=== PATIENT | female | born 1935 | race Caucasian/White ===

== ENCOUNTER 2016-06-23 22:09 | Emergency (ER) ==
--- NOTE | 2016-06-23 22:18 | ED.PDOC ---
General ED Provider: Dr. PHILIP FAULKNER Chief Complaint: Urinary Problem Stated Complaint: bLOOD IN THE URINE Time Seen by Physician: 22:16 Nursing and Triage Documentation Reviewed and Agree: Yes Complaint Exam - UTI Female Complaint/Exam Patient Complains of: Reports: Blood in urine Symptoms Are: Still present Timing: Intermittent Initial Severity: Mild Current Severity: Mild Location of Pain: Reports: None Associated Signs and Symptoms: Denies: Fever, Chills, Flank pain, Dyspareunia, Vaginal discharge Related History: Reports: Similar episode Related Surgical History: Reports: None CVA Tenderness: No Suprapubic Tenderness: No Differential Diagnoses: Cystitis Review of Systems - Review Of Systems Constitutional: Reports: No symptoms Eyes: Reports: No symptoms Ears, Nose, Mouth, Throat: Reports: No symptoms Respiratory: Reports: No symptoms Cardiac: Reports: No symptoms GI: Reports: No symptoms : Reports: Burning, Dysuria, Hematuria Musculoskeletal: Reports: No symptoms Skin: Reports: No symptoms Neurological: Reports: No symptoms Endocrine: Reports: No symptoms Hematologic/Lymphatic: Reports: No symptoms All Other Systems: Reviewed and Negative Past Medical History - Past Medical History Previously Healthy: No Endocrine: Reports: None Cardiovascular: Reports: CAD (S/P STENTS) Respiratory: Reports: None Hematological: Reports: None Gastrointestinal: Reports: None Genitourinary: Reports: None Neuro/Psych: Reports: None Musculoskeletal: Reports: None Cancer: Reports: None - Surgical History General Surgical History: Reports: None - Family History Family History: Reports: None Physical Exam - Physical Exam Appearance: Well-appearing, Thin Eyes: EOMI, Conjunctiva clear, Conjunctiva pale ENT: Ears normal, Nose normal, Oropharynx normal Respiratory: Airway patent, Breath sounds clear, Breath sounds equal, Respirations nonlabored Cardiovascular: RRR, Pulses normal, No rub, No murmur GI/: Soft, Nontender, No masses, Bowel sounds normal, No Organomegaly Musculoskeletal: Normal strength, ROM intact, No edema, No calf tenderness Skin: Warm, Dry, Normal color Neurological: Sensation intact, Motor intact, Reflexes intact, Cranial nerves intact, Alert, Oriented Psychiatric: Affect appropriate, Mood appropriate Interpretation - Radiology Interpretation Radiology Interpretation By: Radiologist Radiology Results: Positive Exam Interpreted: CT Scan Critical Care Note - Critical Care Note Total Time (mins): 0 Course - Course Hematology/Chemistry: 06/23/16 22:30 06/23/16 22:30 Orders, Labs, Meds: Lab Review 06/23/16 06/23/16 22:30 22:35 WBC 8.45 RBC 4.19 L Hgb 13.2 Hct 39.6 MCV 94.5 MCH 31.5 H MCHC 33.3 RDW Coeff of Vanessa 13.2 Plt Count 200 Immature Gran % (Auto) 0.1 Neut % (Auto) 43.4 Lymph % (Auto) 41.9 [place] % (Auto) 11.2 H Eos % (Auto) 2.8 Baso % (Auto) 0.6 Immature Gran # (Auto) 0.0 Neut # 3.7 Lymph # 3.5 H Nance # 1.0 Eos # 0.2 Baso # 0.1 Sodium 137 Potassium 4.6 Chloride 102 Carbon Dioxide 27 Anion Gap 12.6 BUN 21 H Creatinine 0.83 Estimated GFR (MDRD) 66.00 BUN/Creatinine Ratio 25.30 Glucose 105 Calcium 9.6 Total Bilirubin 0.29 AST 19 ALT 11 L Alkaline Phosphatase 69 Total Protein 7.7 Albumin 3.9 Globulin 3.8 Albumin/Globulin Ratio 1.03 Urine Color Red Urine Clarity Cloudy Urine pH 6.0 Ur Specific [place] 1.015 Urine Protein 3+ Urine Glucose (UA) Negative Urine Ketones Trace Urine Blood 3+ Urine Nitrite Negative Urine Bilirubin 3+ Urine Urobilinogen 1.0 Ur Leukocyte Esterase 3+ Urine Microscopic RBC 50-100 Urine Microscopic WBC 5-10 Ur Squamous Epith Cells Not present Orders Category Date Time Status CBC W/ AUTO DIFF Stat LAB 06/23/16 22:30 Completed COMPREHENSIVE METABOLIC PANEL Stat LAB 06/23/16 22:30 Completed URINALYSIS C & S IF INDICATED Stat LAB 06/23/16 22:35 Completed URINE CULTURE Stat LAB 06/23/16 22:56 Received Ciprofloxacin HCl [Cipro] MEDS 06/23/16 22:59 Stat 250 mg PO ONCE STA CT ABDOMEN/PELVIS WO CONTRAST Stat RADS 06/23/16 22:15 Completed Vital Signs: Temp Pulse Resp BP Pulse Ox 06/23/16 22:10 98.4 F 67 18 149/70 H 98 Departure - Departure Time of Disposition: 22:30 Disposition: HOME SELF-CARE Discharge Problem: Hematuria, Cystitis Instructions: Hematuria (ED), Urinary Tract Infection in Women (ED) Condition: Stable Pt referred to PMD for follow-up: Yes Additional Instructions: KEEP F/U WITH pmd Increase hydration probiotiotics Allergies/Adverse Reactions: Allergies No Known Drug Allergies Adverse Reaction (Verified 06/23/16 22:20) Disposition Discussed With: Patient
[2016-06-23 22:19] VITALS: BP 149/70; TEMP 98.4; BMI 24.3
[2016-06-23 22:35] LABS: BASOPHILS # (AUTO) 0.1 K/uL (0-0.2); BASOPHILS % (AUTO) 0.6 % (0.0-3.0); EOSINOPHILS # (AUTO) 0.2 K/ul (0.0-0.7); EOSINOPHILS % (AUTO) 2.8 % (0.0-7.0); HEMATOCRIT 39.6 % (37.0-47.0); HEMOGLOBIN 13.2 g/dl (12.0-16.0); IMMATURE GRANULOCYTE % (AUTO) 0.1 % (0.0-5.0); LYMPHOCYTES # (AUTO) 3.5 K/uL (0.60-3.4); LYMPHOCYTES % (AUTO) 41.9 (10.0-50.0); MEAN CORPUSCULAR HEMOGLOBIN 31.5 pg (27.0-31.0); MEAN CORPUSCULAR HGB CONC 33.3 (31.8-35.4); MEAN CORPUSCULAR VOLUME 94.5 fl (81.0-99.0); MONOCYTES % (AUTO) 11.2 (0-10); NEUTROPHILS # (AUTO) 3.7 K/ul (2.0-6.9); NEUTROPHILS % (AUTO) 43.4; PLATELET COUNT 200 10^3/uL (140-440); RED BLOOD COUNT 4.19 10^6/ul (4.20-5.40); WHITE BLOOD COUNT 8.45 K/ul (4.6-10.2)
[2016-06-23 22:43] LABS: BILIRUBIN,URINE 3+ (NEGATIVE); KETONES,URINE Trace (NEGATIVE); LEUKOCYTE ESTERASE ,URINE 3+ (NEGATIVE); NITRITE,URINE Negative (NEGATIVE); PROTEIN,URINE 3+ (NEGATIVE); URINE, BLOOD 3+ (NEGATIVE)
[2016-06-23 22:53] LABS: ADD URINE MICROSCOPIC YES
--- NOTE | 2016-06-23 22:53 | CT ---
EXAM: CT abdomen pelvis without intravenous contrast 06/23/2016. Sagittal and coronal reformatted images obtained HISTORY: Hematuria COMPARISON: 11/22/2009. FINDINGS: The liver and gallbladder show no acute abnormality. High density within the gallbladder likely due to small stones. The adrenal glands and kidneys show no acute abnormality. There is no evidence of urinary obstructi on. The urinary bladder is mildly distended. There is wall thickening of the urinary bladder with perivesicular stranding. Correlate for cystitis. The spleen and pancreas show no acute abnormality. No evidence of bowel obstruction. Normal appendix. Diverticulosis without diverticulitis. IMPRESSION: 1. Gallstones. 2. No urinary or bowel obstruction and normal appendix. 3. Mild thickening of the urinary bladder wall with perivesicular stranding. Correlate for cystiti s. 4. Diverticulosis without diverticulitis. 5. Atherosclerotic vascular disease.
[2016-06-23 22:54] LABS: ALBUMIN 3.9 g/dL (3.4-5.0); ALBUMIN/GLOBULIN RATIO 1.03; ANION GAP 12.6; BILIRUBIN,TOTAL 0.29 mg/dL (0.00-1.20); BUN/CREATININE RATIO 25.3; CALCIUM 9.6 mg/dL (8.2-10.2); CREATININE 0.83 mg/dL (0.60-1.30); POTASSIUM 4.6 mmol/L (3.5-5.10); TOTAL PROTEIN 7.7 g/dL (5.8-8.1)
[2016-06-23] MEDS ORDERED: CIPRO PO STA (22:59)
[2016-06-23] MEDS ORDERED: BACTRIM DS 800/160 MG PO STA (23:09)
== END 2016-06-23 23:24 | disposition home or self-care (01) ==
LOC: ED 22:09
DX: N30.91 Cystitis, unspecified with hematuria (principal)
CPT/HCPCS: 36415; 80053; 81001; 85025; 87086; 99283

== ENCOUNTER 2016-07-16 00:01 | Outpatient (POV) | END 2016-07-16 00:02 | LOC: OUTPT 00:01 | PROVIDERS: ATTEND Otolaryngology | DX: H90.5 Unspecified sensorineural hearing loss (principal) | CPT/HCPCS: 92557 ==

== ENCOUNTER 2016-12-30 07:02 | Day surgery (SDC) ==
[2016-12-30] MEDS ORDERED: DIPRIVAN 20 ML VIAL IVP ONE (09:00)
[2016-12-30] MEDS ORDERED: VERSED ONE (09:00)
[2016-12-30 10:41] VITALS: BP 108/66; TEMP 97.2
--- NOTE | 2016-12-31 13:50 | OP ---
INDICATIONS FOR PROCEDURE: 81 year female with a past history of abnormalis polyps screening three years ago and presents for colonoscopy exam. MEDICATIONS: SEE ANESTHESIA NOTES. PROCEDURE: COLONOSCOPY. SNARE POLYPECTOMY REPORT: The risks, benefits, alternatives and limitations were discussed in detail with the patient. Informed consent was obtained. After adequate sedation was achieved, a digital rectal exam revealed good tone, no masses. The colonoscope was introduced into the rectum and advanced under direct visual guidance to the cecum. The cecum was identified by the appendiceal orifice and IC valve. I then slowly withdrew the scope in circumferential manner and examined the mucosa quite carefully. I looked on the proximal distal sides of folds and flexures as best as possible. In the ascending colon there is a small 4-5mm sessile polyp that I removed by snare technique. In the proximal transverse there is a 7mm sessile that I removed by snare technique. In the sigmoid there is 5mm sessile that I removed by snare technique. There was dean diverticulosis. No other abnormalities noted included on retroflex view of the anal canal. The prep was good. The withdraw time was 13 minutes and 33 seconds. The patient tolerated the procedure well with stable vital signs and pulse oximetry throughout. IMPRESSION: 1. Three polyps removed 2. Dean diverticulosis RECOMMENDATIONS: 1. High fiber diet 2. Office visit as needed 3. Await pathology results to confirm benign nature 4. Given her advanced age and health I recommend future colonoscopy on an as needed basis. CC: Gary GAMING
== END 2016-12-30 10:43 | disposition home or self-care (01) ==
LOC: SURG 07:02
PROVIDERS: ATTEND Internal Medicine Gastroenterology
DX: Z09 Encounter for follow-up examination after completed treatment for conditions other than malignant neoplasm (principal); Z86.010 Personal history of colon polyps; D12.2 Benign neoplasm of ascending colon; D12.3 Benign neoplasm of transverse colon; D12.5 Benign neoplasm of sigmoid colon; K57.30 Diverticulosis of large intestine without perforation or abscess without bleeding

== ENCOUNTER 2018-10-28 13:40 | Outpatient (CLI) | payer OTHER ==
--- NOTE | 2018-10-29 10:29 | MAMMO ---
EXAM: Digital screening mammogram with Tomosynthesis HISTORY: Screening COMPARISON: 07/21/2013 FINDINGS: Digital MLO and CC views of the right and left breast were performed. Tomosynthesis was performed. Computer aided detection utilized. There are scattered fibroglandular densities. There i s no evidence for mass, asymmetry, distortion, or suspicious calcifications in either breast. IMPRESSION: 1. No evidence of malignancy in the right or left breast. 2. Annual screening mammogram is recommended in one year. BIRADS category 1, negative examination
== END 2018-10-28 13:41 | disposition home or self-care (01) ==
LOC: RAD 13:40
PROVIDERS: ATTEND Family Medicine
DX: Z12.31 Encounter for screening mammogram for malignant neoplasm of breast (principal)

== ENCOUNTER 2021-05-20 16:34 | Inpatient (IN) ==
[2021-05-20 16:45] VITALS: BMI 19.8
[2021-05-20] MEDS ORDERED: LACTATED RINGERS 1,000 ML IV STA (17:33)
--- NOTE | 2021-05-20 17:38 | ED.PDOC ---
General ED Provider: Dr. PATRICK CALDWELL Chief Complaint: Nausea/Vomiting Stated Complaint: Nausea, cough, Fever sore throat and Diarrhea for two days. Time Seen by Provider: 05/20/21 17:33 Mode of Arrival: Wheelchair Information Source: Patient Primary Care Provider: PRISCA ZABALA Nursing and Triage Documentation Reviewed and Agree: Yes Does patient meet sepsis criteria?: No If yes, has appropriate treatment been initiated?: No System Inflammatory Response Syndrome: Not Applicable Sepsis Protocol: For patient's 13 years and over: Temp is 96.8 and below OR 101 and greater Pulse >90 BPM Resp >20/minute Acutely Altered Mental Status Are patient's symptoms suggestive of a new infection, such as: -Pneumonia -Skin, Soft Tissue -Endocarditis -UTI -Bone, Joint Infection -Implantable Device -Acute Abdominal Infection -Wound Infection -Meningitis -Blood Stream Catheter Infection -Unknown Review of Systems Review Of Systems Constitutional: Reports Weakness and Loss of appetite Eyes: Reports No symptoms Ears, Nose, Mouth, Throat: Reports Throat pain Respiratory: Reports Cough Cardiac: Reports No symptoms GI: Reports Diarrhea, Nausea and Vomiting : Reports No symptoms Musculoskeletal: Reports No symptoms Skin: Reports No symptoms Neurological: Reports Anxiety Endocrine: Reports No symptoms Hematologic/Lymphatic: Reports No symptoms All Other Systems: Reviewed and Negative [facility] Medical History (Updated 05/20/21 @ 21:46 by PATRICK CALDWELL MD) Arthritis Cardiac disease Seasonal allergies Family History Mother Diabetes SISTER Diabetes Psychiatric problem BROTHER Diabetes Surgical History (Updated 05/20/21 @ 21:46 by PATRICK CALDWELL MD) S/P Maze operation for atrial fibrillation Status post hysterectomy Female Reproductive History Menstrual Hx Hysterectomy: Yes Hx Tubal Ligation: No Physical Exam Physical Exam Appearance: Reports Ill-appearing and Thin Ill-appearing: Severe Pain Distress: None Eyes: Reports Conjunctiva clear ENT: Reports Nose normal and Oropharynx normal Neck: Supple Respiratory: Reports Breath sounds diminished and Rhonchi Cardiovascular: Reports Tachycardia GI/: Reports Soft, Nontender and No masses Musculoskeletal: Reports Normal strength, ROM intact and No edema Skin: Reports Warm, Dry and Normal color Neurological: Reports Motor intact, Alert and Oriented Psychiatric: Reports Anxious Interpretation Radiology Interpretation Radiology Interpretation By: Radiologist Radiology Results: Positive (No evidence of pulmonary embolus. Cardiomegaly without pericardial effusion.. Metastatic pulmonary nodules. Right lobe pneumonia. Minimal left basilar atelectasis.) Exam Interpreted: CT Scan EKG Interpretation Time of EKG #1: 18:36 Rate: Tachy Rhythm: Other (Atrial Fibrillation) Ectopy: None [place]: NL ST Segment: Other (non specific consider subendocaridic injury ) Interpretation: Atrial Fibrillation with RVR Time of EKG #2: 18:38 Rate: Normal Rhythm: Other (Atrial Fibrillation) Ectopy: PVCs [place]: NL ST Segment: Normal EKG Interpretation: Afib with PACS Critical Care Note Critical Care Note Total Critical Care Time (mins): 30 Course Course Hematology/Chemistry: 05/20/21 17:42 05/20/21 17:42 Orders, Labs, Meds: Lab Review 05/20/21 05/20/21 05/20/21 17:33 17:42 17:42 WBC 7.54 RBC 3.67 L Hgb 11.7 L Hct 36.0 L MCV 98.1 MCH 31.9 H MCHC 32.5 RDW Coeff of Vanessa 14.9 H Plt Count 118 L Immature Gran % (Auto) 0.3 Neut % (Auto) 79.5 H Lymph % (Auto) 11.3 [place] % (Auto) 8.8 Eos % (Auto) 0.0 Baso % (Auto) 0.1 Neut # (Auto) 6.0 Lymph # (Auto) 0.9 [place] # (Auto) 0.7 Eos # (Auto) 0.0 Baso # (Auto) 0.0 Immature Gran # (Auto) 0.0 Puncture Site Base Excess O2 Saturation ABG pH ABG pCO2 ABG pO2 ABG HCO3 ABG Total CO2 Americo Test Hemoglobin Oxyhemoglobin Carboxyhemoglobin Total Hemoglobin FiO2 % Sodium 134.3 L Potassium 3.55 Chloride 100.0 Carbon Dioxide 28.5 Anion Gap 9.35 BUN 27.0 H Creatinine 1.14 Estimated GFR (MDRD) 45.00 BUN/Creatinine Ratio 23.68 Glucose 145.7 H Lactic Acid Calcium 9.17 Total Bilirubin 0.94 AST 53.5 H ALT 19.7 Alkaline Phosphatase 103.4 Total Protein 7.30 Albumin 3.89 Globulin 3.41 Albumin/Globulin Ratio 1.14 Amylase 89.0 Lipase 75.3 Procalcitonin Urine Color Urine Clarity Urine pH Ur Specific [place] Urine Protein Urine Glucose (UA) Urine Ketones Urine Blood Urine Nitrite Urine Bilirubin Urine Urobilinogen Ur Leukocyte Esterase Urine Microscopic RBC Urine Microscopic WBC Ur Squamous Epith Cells Ur Renal Epithelial Cell Amorphous Sediment Fine Granular Casts Influ A Molecular Assay Influ B Molecular Assay RSV Antigen SARS CoV-2 RNA Rapid JULIEN Positive H 05/20/21 05/20/21 05/20/21 17:42 17:49 17:49 WBC RBC Hgb Hct MCV MCH MCHC RDW Coeff of Vanessa Plt Count Immature Gran % (Auto) Neut % (Auto) Lymph % (Auto) [place] % (Auto) Eos % (Auto) Baso % (Auto) Neut # (Auto) Lymph # (Auto) [place] # (Auto) Eos # (Auto) Baso # (Auto) Immature Gran # (Auto) Puncture Site Base Excess O2 Saturation ABG pH ABG pCO2 ABG pO2 ABG HCO3 ABG Total CO2 Americo Test Hemoglobin Oxyhemoglobin Carboxyhemoglobin Total Hemoglobin FiO2 % Sodium Potassium Chloride Carbon Dioxide Anion Gap BUN Creatinine Estimated GFR (MDRD) BUN/Creatinine Ratio Glucose Lactic Acid 2.20 H Calcium Total Bilirubin AST ALT Alkaline Phosphatase Total Protein Albumin Globulin Albumin/Globulin Ratio Amylase Lipase Procalcitonin 0.43 H Urine Color Urine Clarity Urine pH Ur Specific [place] Urine Protein Urine Glucose (UA) Urine Ketones Urine Blood Urine Nitrite Urine Bilirubin Urine Urobilinogen Ur Leukocyte Esterase Urine Microscopic RBC Urine Microscopic WBC Ur Squamous Epith Cells Ur Renal Epithelial Cell Amorphous Sediment Fine Granular Casts Influ A Molecular Assay Negative by naat Influ B Molecular Assay Negative by naat RSV Antigen Negative by naat SARS CoV-2 RNA Rapid JULIEN 05/20/21 05/20/21 18:40 20:30 WBC RBC Hgb Hct MCV MCH MCHC RDW Coeff of Vanessa Plt Count Immature Gran % (Auto) Neut % (Auto) Lymph % (Auto) [place] % (Auto) Eos % (Auto) Baso % (Auto) Neut # (Auto) Lymph # (Auto) [place] # (Auto) Eos # (Auto) Baso # (Auto) Immature Gran # (Auto) Puncture Site Lbrach Base Excess 4.0 H O2 Saturation 83.9 L ABG pH 7.47 H ABG pCO2 38.0 ABG pO2 45.0 L* ABG HCO3 27.7 ABG Total CO2 28.9 H Americo Test + Hemoglobin 1.0 Oxyhemoglobin 81.5 L Carboxyhemoglobin 0.5 Total Hemoglobin 11.5 L FiO2 % 21.0 Sodium Potassium Chloride Carbon Dioxide Anion Gap BUN Creatinine Estimated GFR (MDRD) BUN/Creatinine Ratio Glucose Lactic Acid Calcium Total Bilirubin AST ALT Alkaline Phosphatase Total Protein Albumin Globulin Albumin/Globulin Ratio Amylase Lipase Procalcitonin Urine Color Yellow Urine Clarity Clear Urine pH 7.0 Ur Specific [place] 1.020 Urine Protein 2+ H Urine Glucose (UA) Negative Urine Ketones Negative Urine Blood 1+ H Urine Nitrite Negative Urine Bilirubin Negative Urine Urobilinogen 0.2 Ur Leukocyte Esterase Negative Urine Microscopic RBC 2-5 Urine Microscopic WBC 5-10 Ur Squamous Epith Cells 0-2 Ur Renal Epithelial Cell 2-5 Amorphous Sediment Trace Fine Granular Casts 5-10 Influ A Molecular Assay Influ B Molecular Assay RSV Antigen SARS CoV-2 RNA Rapid JULIEN Orders Category Date Time Status ABG DRAW REQUEST DAILY@0600 CARDIO 05/21/21 06:00 Ordered ABG DRAW REQUEST DAILY@0600 CARDIO 05/22/21 06:00 Ordered ABG DRAW REQUEST Stat CARDIO 05/20/21 18:49 Completed EKG-(ED ONLY) Stat CARDIO 05/20/21 18:30 Completed EKG-(ED ONLY) Stat CARDIO 05/20/21 18:49 Completed INCENTIVE SPIROMETRY Routine CARDIO 05/20/21 20:34 Ordered METERED DOSE INHALATION Routine CARDIO 05/20/21 20:38 Ordered CONTINUOUS PULSE OX (NURSING) PULSEOX CARE 05/20/21 20:34 Active NPO REMINDER: IMAGING ONCE CARE 05/20/21 19:02 Active TELEMETRY MONITORING TELE CARE 05/20/21 20:34 Active ED IV/MEDIPORT/POWERPORT .ONCE EMERGENCY 05/20/21 17:33 Active ABG COOX DAILY@0600 LAB 05/21/21 06:00 Ordered ABG COOX DAILY@0600 LAB 05/22/21 06:00 Ordered ABG COOX Stat LAB 05/20/21 18:40 Completed AMYLASE Stat LAB 05/20/21 17:42 Completed BLOOD CULTURE (ED ONLY) Stat LAB 05/20/21 17:49 Received C-REACTIVE PROTEIN DAILY@0600 LAB 05/21/21 06:00 Ordered C-REACTIVE PROTEIN DAILY@0600 LAB 05/22/21 06:00 Ordered CBC W/ AUTO DIFF Stat LAB 05/20/21 17:42 Completed COMPREHENSIVE METABOLIC PANEL Stat LAB 05/20/21 17:42 Completed D-DIMER DAILY@0600 LAB 05/20/21 06:00 Ordered D-DIMER DAILY@0600 LAB 05/21/21 06:00 Ordered D-DIMER DAILY@0600 LAB 05/22/21 06:00 Ordered FERRITIN DAILY@0600 LAB 05/21/21 06:00 Ordered FERRITIN DAILY@0600 LAB 05/22/21 06:00 Ordered FLU A & B MOLECULAR [FLU A/B MOLECULAR] Stat LAB 05/20/21 17:42 Completed LACTIC ACID Stat LAB 05/20/21 17:49 Completed LIPASE Stat LAB 05/20/21 17:42 Completed Lactic Acid Dehydrogenase DAILY@0600 LAB 05/21/21 06:00 Ordered PROCALCITONIN Stat LAB 05/20/21 17:49 Completed PT WITH INR DAILY@0600 LAB 05/21/21 06:00 Ordered PT WITH INR DAILY@0600 LAB 05/22/21 06:00 Ordered RAPID STREP SCREEN [MOLECULAR GROUP A STREP] Stat LAB 05/20/21 17:33 Completed RSV Stat LAB 05/20/21 17:42 Completed TROPONIN I DAILY@0600 LAB 05/21/21 06:00 Ordered TROPONIN I DAILY@0600 LAB 05/22/21 06:00 Ordered URINALYSIS C & S IF INDICATED Stat LAB 05/20/21 20:30 Completed 0.9 % Sodium Chloride [Saline Flush] MEDS 05/20/21 17:33 Active 1 syr IVF PRN PRN Acetaminophen [Tylenol] MEDS 05/20/21 19:20 Discontinued 650 mg PO ONCE ONE Albuterol Inhaler(with Spacer) [Ventolin Hfa (Per Puff- MEDS 05/20/21 21:00 Active with Spacer)] 4 puff IH RTTID Budesonide/Formoterol Fumarate [Symbicort 160-4.5 Mcg MEDS 05/20/21 21:00 Active Inhaler] 4 puff IH RTBID Ceftriaxone 1 gm Vial [Rocephin 1 gm Vial] MEDS 05/20/21 19:26 Discontinued 1 gm .ROUTE .STK-MED ONE Ceftriaxone 1 gm Vial [Rocephin 1 gm Vial] 1 gm MEDS 05/20/21 19:19 Discontinued 0.9 % Sodium Chloride [Sodium Chloride 100Ml] 100 ml IV ONCE Cholecalciferol (Vitamin D3) [Vitamin D] MEDS 05/21/21 09:00 Active 5,000 unit PO DAILY Dexamethasone Sod Phosphate [Decadron] MEDS 05/21/21 09:00 Active 6 mg IM DAILY Dexamethasone Sod Phosphate [Decadron] MEDS 05/20/21 19:19 Discontinued 6 mg IVP ONCE ONE Diltiazem HCl [Cardizem Inj] MEDS 05/20/21 18:29 Discontinued 15 mg IVP ONCE STA Diltiazem HCl [Cardizem] 125 mg MEDS 05/20/21 18:30 Discontinued 0.9 % Sodium Chloride [Sodium Chloride 100Ml] 100 ml IV TITRATION Famotidine [Pepcid] MEDS 05/21/21 06:30 Pending 40 mg PO BIDAC Ondansetron HCl/Pf [Zofran 4 mg/2 ml] MEDS 05/20/21 17:46 Discontinued 4 mg IVP ONCE STA Remdesivir Solution [Veklury] 100 mg MEDS 05/22/21 09:00 Pending 0.9 % Sodium Chloride [Sodium Chloride] 250 ml IV DAILY Remdesivir Solution [Veklury] 200 mg MEDS 05/21/21 09:00 Active 0.9 % Sodium Chloride [Sodium Chloride] 250 ml IV ONCE Ringers Lactated Solution [Lactated Ringers] 1,000 ml MEDS 05/20/21 17:33 Discontinued IV BOLUS Zinc Sulfate [Zinc-220] MEDS 05/21/21 09:00 Active [address] ABDOMEN/PELVIS W CONTRAST Stat RADS 05/20/21 19:[address] CHEST PE PROTOCOL Stat RADS 05/20/21 19:02 Completed Medications Generic Name Dose Route Start Last Admin Trade Name Freq PRN Reason Stop Dose Admin Albuterol Sulfate 4 puff 05/20/21 21:00 Albuterol Sulfate (Ventolin Hfa) 18 Gm 1 Puff With Spacer RTTID [facility] Budesonide/Formoterol Fumarate 4 puff 05/20/21 21:00 Budesonide/Formoterol Fumarate 160/4.5 Mcg Inhaler RTBID [facility] Cholecalciferol 5,000 unit 05/21/21 09:00 Cholecalciferol (Vitamin D3) 1,000 Unit (25 Mcg) Tablet PO DAILY [facility] Dexamethasone Sodium Phosphate 6 mg 05/21/21 09:00 Dexamethasone Sod Phos 10 Mg/Ml Inj IM DAILY [facility] Enoxaparin Sodium 30 mg 05/21/21 09:00 Enoxaparin Sodium 30 Mg/0.3 Ml Syr SUBCUT DAILY [facility] Famotidine 40 mg 05/21/21 06:30 Famotidine 20 Mg Tablet PO BIDAC [facility] REMDESIVIR SOLUTION 100 mg/ 270 mls @ 270 mls/hr 05/22/21 09:00 Sodium Chloride IV DAILY HATTIE REMDESIVIR SOLUTION 200 mg/ 290 mls @ 145 mls/hr 05/21/21 09:00 Sodium Chloride IV 05/21/21 10:59 ONCE ONE Sodium Chloride 1,000 mls @ 30 mls/hr 05/20/21 21:30 Sodium Chloride IV .[id number] [facility] Diltiazem HCl 125 mg/ Sodium 125 mls @ 15 mls/hr 05/20/21 21:34 Chloride IV TITRATION HATTIE Protocol 15 MG/HR Ondansetron HCl 4 mg 05/20/21 21:35 Ondansetron Hcl/Pf 4 Mg/2 Ml Sdv IVP Q6H PRN Nausea / Vomiting Sodium Chloride 1 syr 05/20/21 17:33 05/20/21 18:03 0.9% Sodium Chloride 10 Ml Disp.Syrin IVF 1 syr PRN PRN Administration To flush IV Zinc Sulfate 220 mg 05/21/21 09:00 Zinc Sulfate 220 Mg Capsule PO DAILY [facility] Discontinued Medications Generic Name Dose Route Start Last Admin Trade Name Freq PRN Reason Stop Dose Admin Acetaminophen 650 mg 05/20/21 19:20 05/20/21 19:30 Acetaminophen 325 Mg Tablet PO 05/20/21 19:21 650 mg ONCE ONE Administration Dexamethasone Sodium Phosphate 6 mg 05/20/21 19:19 05/20/21 19:29 Dexamethasone Sod Phos 10 Mg/Ml Inj IVP 05/20/21 19:20 6 mg ONCE ONE Administration Diltiazem HCl 15 mg 05/20/21 18:29 05/20/21 18:37 Diltiazem Hcl Inj 25 Mg/5 Ml Vial IVP 05/20/21 18:30 15 mg ONCE STA Administration Lactated Ringer's 1,000 mls @ 1,000 mls/hr 05/20/21 17:33 05/20/21 17:32 Lactated Ringers IV 05/20/21 18:32 1,000 mls/hr BOLUS STA Administration Diltiazem HCl 125 mg/ Sodium 125 mls @ 5 mls/hr 05/20/21 18:30 05/20/21 20:32 Chloride IV 10 mg/hr TITRATION HATTIE 10 mls/hr Titration Protocol 5 MG/HR Ceftriaxone Sodium 1 gm/ 100 mls @ 150 mls/hr 05/20/21 19:19 05/20/21 19:30 Sodium Chloride IV 05/20/21 19:58 150 mls/hr ONCE STA Administration Ondansetron HCl 4 mg 05/20/21 17:46 05/20/21 18:06 Ondansetron Hcl/Pf 4 Mg/2 Ml Sdv IVP 05/20/21 17:47 4 mg ONCE STA Administration Vital Signs: Temp Pulse Resp BP Pulse Ox 05/20/21 20:11 105 H 20 118/66 96 05/20/21 16:39 101.4 F H 120 H 19 121/89 93 L Discharge Plan Discharge Patient Disposition: ADMITTED INPATIENT Discharge Problem: COVID-19, Nausea, Vomiting, Atrial fibrillation with RVR ED Provider: PATRICK CALDWELL Condition: Fair Physician Progress Note: []
[2021-05-20] MEDS ORDERED: ZOFRAN 4 MG/2 ML IVP STA (17:46)
[2021-05-20 17:50] LABS: BASOPHILS % (AUTO) 0.1 % (0.0-3.0); HEMOGLOBIN 11.7 g/dl (12.0-16.0); IMMATURE GRANULOCYTE % (AUTO) 0.3 % (0.0-5.0); LYMPHOCYTES # (AUTO) 0.9 K/uL (0.60-3.4); LYMPHOCYTES % (AUTO) 11.3 (10.0-50.0); MEAN CORPUSCULAR HEMOGLOBIN 31.9 pg (27.0-31.0); MEAN CORPUSCULAR HGB CONC 32.5 (31.8-35.4); MEAN CORPUSCULAR VOLUME 98.1 fl (81.0-99.0); MONOCYTES # (AUTO) 0.7 K/uL (0.4-2.0); MONOCYTES % (AUTO) 8.8 (0-10); NEUTROPHILS % (AUTO) 79.5 % (42.2-75.2); PLATELET COUNT 118 10^3/uL (140-440); RDW COEFFICIENT OF VARIATION 14.9 % (11.6-14.8); RED BLOOD COUNT 3.67 10^6/ul (4.20-5.40); WHITE BLOOD COUNT 7.54 K/ul (4.6-10.2)
[2021-05-20 17:58] LABS: ALANINE AMINOTRANSFERASE 19.7 U/L (0-35); ALBUMIN 3.89 g/dL (3.5-5.0); ALKALINE PHOSPHATASE 103.4 U/L (53-141); ASPARTATE AMINO TRANSFERASE 53.5 U/L (14-36); BILIRUBIN,TOTAL 0.94 mg/dL (0.2-1.3); CALCIUM 9.17 mg/dL (8.4-10.2); CARBON DIOXIDE 28.5 mmol/L (22-30.0); CREATININE 1.14 mg/dL (0.60-1.30); GLUCOSE 145.7 mg/dL (74-106); LIPASE 75.3 U/L (23-300); POTASSIUM 3.55 mmol/L (3.5-5.1); SODIUM 134.3 mmol/L (134.5-145); TOTAL PROTEIN 7.3 g/dL (6.3-8.2)
[2021-05-20 18:03] LABS: MOLECULAR FLU A NEGATIVE BY NAAT (NEGATIVE); MOLECULAR FLU B NEGATIVE BY NAAT (NEGATIVE); RSV MOLECULAR NEGATIVE BY NAAT (NEGATIVE)
[2021-05-20] MEDS ORDERED: CARDIZEM INJ IVP STA (18:29)
[2021-05-20] MEDS ORDERED: CARDIZEM 125 MG in SODIUM CHLORIDE 100ML 100 ML IV SCH (18:30)
[2021-05-20 18:56] LABS: ABG PH 7.47 (7.35-7.45)
[2021-05-20 18:57] LABS: COHb 0.5 (0.5-1.5); HCO3 27.7 (21-28); TCO2 28.9 (19-24); sO2 83.9 % (94-98)
[2021-05-20 18:58] LABS: ABG O2 HGB 81.5 % (95-100); tHb 11.5 g/dl (11.7-17.4)
[2021-05-20] MEDS ORDERED: ROCEPHIN 1 GM VIAL 1 GM in SODIUM CHLORIDE 100ML 100 ML IV STA (19:19)
[2021-05-20] MEDS ORDERED: DECADRON IVP ONE (19:19)
[2021-05-20] MEDS ORDERED: TYLENOL PO ONE (19:20)
[2021-05-20] MEDS ORDERED: ROCEPHIN 1 GM VIAL ONE (19:26)
[2021-05-20 20:47] LABS: BILIRUBIN,URINE Negative (NEGATIVE); CLARITY,URINE Clear (CLEAR); COLOR,URINE Yellow (YELLOW); GLUCOSE, URINE (UA) Negative (NEGATIVE); KETONES,URINE Negative (NEGATIVE); LEUKOCYTE ESTERASE ,URINE Negative (NEGATIVE); NITRITE,URINE Negative (NEGATIVE); PROTEIN,URINE 2+ (NEGATIVE); URINE, BLOOD 1+ (NEGATIVE); UROBILINOGEN,URINE 0.2 (0.2)
[2021-05-20 20:56] LABS: AMORPHOUS SEDIMENT,UR TRACE (NOT PRESENT); SQUAMOUS EPITHELIAL CELL,UR 0-2 (0-5)
--- NOTE | 2021-05-20 21:08 | CT ---
EXAM: CT of the abdomen pelvis with contrast History: Abdominal pain with nausea and vomiting. Comparison: CT abdomen pelvis 06/23/2016 Technique: Multiplanar CT images through the abdomen pelvis were obtained following administration o f IV contrast Findings: Heart is enlarged. Right basilar consolidation. No acute osseous abnormalities. There i s motion artifact. Cholelithiasis. No liver or splenic lesions. The pancreas and adrenal glands ar e unremarkable. Atherosclerotic vascular calcifications. No renal masses. Mild bilateral hydroneph rosis is probably related to the distended bladder. There is circumferential bladder wall thickening . Uterus is not seen and likely has been surgically removed. The appendix is not dilated or inflame d. No free air and no ascites. Colonic diverticulosis. A few prominent loops of small bowel but no evidence for bowel obstruction. No free air and no ascites. No lymphadenopathy. Impression: 1. Right lower lobe pneumonia. 2. Cholelithiasis. 3. Mild bilateral hydronephrosis is probably related to the distended bladder. 4. Cystitis. 5. Colonic diverticulosis. 6. Atherosclerotic vascular disease All CT scans are performed using dose optimization techniques as appropriate to the performed exam an d include at least one of the following: Automated exposure control, adjustment of the mA and/or kV according t o size, and the use of iterative reconstruction technique.
--- NOTE | 2021-05-20 21:14 | CT ---
EXAM: CTA chest HISTORY: Shortness of breath,covid COMPARISON: CTA chest 09/19/2020 FINDINGS: Postcontrast helical imaging was obtained through the thorax utilizing 3-mm collimation. Sagittal coronal reconstructions were imaged and reviewed. Source images were utilized create rotati ng 3-D MIP images.. The thoracic inlet is unremarkable. There is 1.5 cm pretracheal lymph node. Th e ascending aorta is ectatic measuring 3.4 cm. The heart is enlarged without pericardial effusion. Postoperative changes are seen relation to the aortic valve. There is no pulmonary embolus. There a re marked emphysematous changes. There are upper lobe metastatic pulmonary nodules, largest of which measures 2.2 x 1.1 cm anteriorly within the left upper lobe. The largest right upper lobe pulmonary nodule 1.5 cm. There is a single lead millimeter left lower needed.. Consolidation compatible pneu monia is noted at the right lung base. There is minimal atelectasis at the left lung base. [place] es are seen within the gallbladder. There is fullness of the right pelvocaliceal system and visualiz ed proximal ureter.. Bone windows reveals no evidence of lytic or blastic lesions. IMPRESSION: No evidence of pulmonary embolus. Cardiomegaly without pericardial effusion.. Metastatic pulmonary nodules. Right lobe pneumonia. Minimal left basilar atelectasis. All CT scans are performed using dose optimization techniques as appropriate to the performed exam an d include at least one of the following: Automated exposure control, adjustment of the mA and/or kV according t o size, and the use of iterative reconstruction technique.
[2021-05-20] MEDS ORDERED: ZOFRAN 4 MG/2 ML IVP PRN (21:35)
[2021-05-20] MEDS: CARDIZEM 125 MG in SODIUM CHLORIDE 100ML 100 ML IV SCH (21:50)
[2021-05-20] MEDS: SODIUM CHLORIDE 1,000 ML IV SCH (22:15)
[2021-05-20] MEDS: SYMBICORT 160-4.5 MCG INHALER IH SCH (22:30)
[2021-05-20] MEDS ORDERED: ZITHROMAX 500 MG in SODIUM CHLORIDE 250 ML IV SCH ×2 (22:30→23:00)
[2021-05-20] MEDS: VENTOLIN HFA (PER PUFF-WITH SPACER) IH SCH (23:30)
[2021-05-20] MEDS: CARDIZEM CD PO SCH (23:47)
[2021-05-21] MEDS: VENTOLIN HFA (PER PUFF-WITH SPACER) IH SCH ×3 (05:00→19:45)
[2021-05-21 05:28] LABS: ABG PH 7.42 (7.35-7.45)
[2021-05-21 05:29] LABS: BEecf 3.4 (-2.0-3.0); COHb 1.2 (0.5-1.5); HCO3 27.9 (21-28); MetHb 0 (0-1.5); TCO2 29.2 (19-24); sO2 95.5 % (94-98); tHb 11.8 g/dl (11.7-17.4)
[2021-05-21 05:30] LABS: ABG O2 HGB 93.9 % (95-100)
[2021-05-21] MEDS: LASIX TAB PO SCH (06:09)
[2021-05-21 06:13] LABS: TROPONIN I 0.126 ng/ml (0.0000-0.120)
[2021-05-21 06:17] LABS: PROTHROMBIN TIME 11.4 SEC (9.3-11.0)
[2021-05-21] MEDS ORDERED: PEPCID PO SCH (06:30)
[2021-05-21] MEDS: SYMBICORT 160-4.5 MCG INHALER IH SCH ×2 (06:41→17:03)
[2021-05-21] MEDS: CARDIZEM 125 MG in SODIUM CHLORIDE 100ML 100 ML IV SCH (06:50)
[2021-05-21] MEDS: PEPCID PO SCH (07:17)
[2021-05-21] MEDS: LOVENOX SUBCUT SCH ×2 (07:18→10:11)
[2021-05-21] MEDS ORDERED: LOVENOX SUBCUT SCH (09:00)
[2021-05-21] MEDS ORDERED: LOPRESSOR PO SCH (09:00)
[2021-05-21] MEDS: ARAVA PO SCH (10:09)
[2021-05-21] MEDS: VITAMIN D PO SCH (10:10)
[2021-05-21] MEDS: ASPIRIN EC PO SCH (10:10)
[2021-05-21] MEDS: ZINC-220 PO SCH (10:10)
[2021-05-21] MEDS: ROCEPHIN 1 GM/50 ML D5W 1 GM/50 ML BAG IV SCH (10:11)
[2021-05-21] MEDS: DECADRON IM SCH (10:11)
[2021-05-21 10:53] LABS: BLOOD UREA NITROGEN 26.3 mg/dL (7-17); CALCIUM 9.02 mg/dL (8.4-10.2); CARBON DIOXIDE 26.5 mmol/L (22-30.0); CHLORIDE 104.2 mmol/L (98-107); CREATININE 0.91 mg/dL (0.60-1.30); GLUCOSE 164.9 mg/dL (74-106); MAGNESIUM 1.92 mg/dL (1.6-2.3); POTASSIUM 3.6 mmol/L (3.5-5.1); SODIUM 136.7 mmol/L (134.5-145)
[2021-05-21] MEDS: VIT C E ZN COPPR LUTEIN ZEAXAN PO SCH (11:18)
[2021-05-21] MEDS: LANOXIN PO SCH ×2 (11:18→12:16)
[2021-05-21] MEDS: CARDIZEM CD PO SCH (11:18)
[2021-05-21] MEDS: [UNRECOGNIZED DRUG - OTHER] PO SCH (11:18)
[2021-05-21] MEDS ORDERED: VEKLURY 200 MG in SODIUM CHLORIDE 250 ML IV ONE (12:00)
[2021-05-21] MEDS: LIPITOR PO SCH (16:54)
--- NOTE | 2021-05-21 20:04 | PCM.PROG ---
Date Seen by Provider: 05/21/21 Time Seen by Provider: 09:00 Subjective: Pt feeling better, Afib controlled. Denies chest pain or dyspnea Objective: Vitals: T=97.6 F, P=77, R=19, BP=98/63, SPO2=98 HEENT: Neck: Supple;neg JVD Lungs:CTA CVS: HR irreg irreg Abdomen: Soft non tender Extremities: neg edema Neurological: wnl Skin: [] Lab/Tests/Diagnostic Imaging: [] (1) Atrial fibrillation with RVR: Status: Acute Code(s): I48.91 - Unspecified atrial fibrillation SNOMED Code(s): 449246103855073 (2) COVID-19: Status: Acute Code(s): U07.1 - COVID-19 SNOMED Code(s): 390413090 Plan: Continue current tx Ck lanoxin level/orders
[2021-05-21] MEDS: ZITHROMAX 500 MG in SODIUM CHLORIDE 250 ML IV SCH (21:18)
[2021-05-22] MEDS ORDERED: TYLENOL PO PRN (00:37)
[2021-05-22 04:09] LABS: C-REACTIVE PROTEIN 127 mg/L (0-10)
[2021-05-22] MEDS: VENTOLIN HFA (PER PUFF-WITH SPACER) IH SCH ×3 (04:40→20:00)
[2021-05-22 04:42] LABS: ABG PH 7.45 (7.35-7.45); BEecf 5.2 (-2.0-3.0); HCO3 29.2 (21-28); MetHb 0.2 (0-1.5)
[2021-05-22 04:43] LABS: ABG O2 HGB 94.8 % (95-100); TCO2 30.5 (19-24); sO2 97.3 % (94-98); tHb 13.8 g/dl (11.7-17.4)
[2021-05-22 05:40] LABS: BASOPHILS % (AUTO) 0.1 % (0.0-3.0); HEMATOCRIT 29.4 % (37.0-47.0); HEMOGLOBIN 9.7 g/dl (12.0-16.0); IMMATURE GRANULOCYTE # (AUTO) 0.1 (0.0-1.0); IMMATURE GRANULOCYTE % (AUTO) 0.7 % (0.0-5.0); LYMPHOCYTES % (AUTO) 8.6 (10.0-50.0); MEAN CORPUSCULAR HEMOGLOBIN 31.9 pg (27.0-31.0); MEAN CORPUSCULAR VOLUME 96.7 fl (81.0-99.0); MONOCYTES # (AUTO) 0.8 K/uL (0.4-2.0); MONOCYTES % (AUTO) 6.5 (0-10); NEUTROPHILS # (AUTO) 9.7 K/ul (2.0-6.9); NEUTROPHILS % (AUTO) 84.1 % (42.2-75.2); PLATELET COUNT 86 10^3/uL (140-440); RDW COEFFICIENT OF VARIATION 14.9 % (11.6-14.8); RED BLOOD COUNT 3.04 10^6/ul (4.20-5.40); WHITE BLOOD COUNT 11.52 K/ul (4.6-10.2)
[2021-05-22 05:55] LABS: ALANINE AMINOTRANSFERASE 18.5 U/L (0-35); ALBUMIN 3.1 g/dL (3.5-5.0); ALKALINE PHOSPHATASE 81.6 U/L (53-141); ASPARTATE AMINO TRANSFERASE 37.5 U/L (14-36); BILIRUBIN,TOTAL 0.66 mg/dL (0.2-1.3); BLOOD UREA NITROGEN 30.5 mg/dL (7-17); CALCIUM 8.45 mg/dL (8.4-10.2); CHLORIDE 103.7 mmol/L (98-107); CREATININE 0.73 mg/dL (0.60-1.30); GLUCOSE 136.9 mg/dL (74-106); POTASSIUM 3.37 mmol/L (3.5-5.1); SODIUM 134.9 mmol/L (134.5-145); TOTAL PROTEIN 6.1 g/dL (6.3-8.2)
[2021-05-22] MEDS: PEPCID PO SCH (05:56)
[2021-05-22] MEDS: SYMBICORT 160-4.5 MCG INHALER IH SCH ×2 (05:56→20:25)
[2021-05-22] MEDS: LASIX TAB PO SCH (05:56)
[2021-05-22 06:05] LABS: TROPONIN I 0.047 ng/ml (0.0000-0.120)
[2021-05-22] MEDS: SODIUM CHLORIDE 1,000 ML IV SCH (06:06)
--- NOTE | 2021-05-22 08:46 | PCM.PROG ---
Date Seen by Provider: 05/22/21 Time Seen by Provider: 07:50 Subjective: Pt presented with COVID 19 and afib w/ rvr. Today she is feeling much better. Is still on O2 but on 3L is oxygenating at 97%. Her afib has resolved and HR is 88. She is on Dig and cardizem which will be continued. Objective: Vitals: T=97.6 F, P=80, R=14, ZI=204/58, SPO2=97 HEENT: PERRL Neck: supple Lungs: no respiratory distress, lungs are clear CVS: RRR Abdomen: soft Neurological: A+Ox3, no focal deficits Lab/Tests/Diagnostic Imaging: WBC 11.5, Hb 9.7, K 3.37. AB.45 CO2 42 O2 90. Dig 0.78 (1) Atrial fibrillation with RVR: Status: Acute Code(s): I48.91 - Unspecified atrial fibrillation SNOMED Code(s): 559215157912254 (2) COVID-19: Status: Acute Code(s): U07.1 - COVID-19 SNOMED Code(s): 018353745 Plan: 1. Covid 19: Continue oxygen but start to ween her O2 today. 2. Afib w/ RVR: Pt has converted. Likely secondary to her Covid and RLL pneumonia. Will continue home meds. 3. Anemia: her Hb has dropped from 11.7-9.7. Will add a hemoccult to assure no GI bleeding. Check CBC in AM 4. RLL pneumonia: Will continue ceftrixone and zithromax 5. Hypokalemia: Will give a dose of KDur and check CMP in AM 6. Abnormal CT: CT showed possible metastatic disease. This was alos present in a scan in 09/21. Pt states her PMD is aware of the nodules and she had a biopsy that was negative. Will need to continue to follow up with her PMD.
[2021-05-22] MEDS: ZINC-220 PO SCH (08:56)
[2021-05-22] MEDS: VITAMIN D PO SCH (08:56)
[2021-05-22] MEDS: LANOXIN PO SCH (08:56)
[2021-05-22] MEDS: ASPIRIN EC PO SCH (08:56)
[2021-05-22] MEDS: CARDIZEM CD PO SCH (08:56)
[2021-05-22] MEDS: DECADRON IM SCH (08:57)
[2021-05-22] MEDS: ROCEPHIN 1 GM/50 ML D5W 1 GM/50 ML BAG IV SCH (08:58)
[2021-05-22] MEDS: [UNRECOGNIZED DRUG - OTHER] PO SCH (08:58)
[2021-05-22] MEDS: VIT C E ZN COPPR LUTEIN ZEAXAN PO SCH (08:58)
[2021-05-22] MEDS: ARAVA PO SCH (09:17)
[2021-05-22] MEDS: LOVENOX SUBCUT SCH ×2 (09:54→10:00)
[2021-05-22] MEDS ORDERED: K-DUR PO ONE (11:00)
[2021-05-22] MEDS: VEKLURY 100 MG in SODIUM CHLORIDE 250 ML IV SCH (12:22)
[2021-05-22] MEDS: LIPITOR PO SCH (16:03)
[2021-05-22] MEDS: ZITHROMAX 500 MG in SODIUM CHLORIDE 250 ML IV SCH (20:18)
[2021-05-22 20:32] LABS: OCCULT BLOOD SAMPLE 1 NEGATIVE (NEGATIVE); OCCULT BLOOD SAMPLE 2 NO SPECIMEN RECEIVED (NEGATIVE); OCCULT BLOOD SAMPLE 3 NO SPECIMEN RECEIVED (NEGATIVE)
[2021-05-23] MEDS: VENTOLIN HFA (PER PUFF-WITH SPACER) IH SCH ×3 (05:00→19:50)
[2021-05-23] MEDS: PEPCID PO SCH (06:11)
[2021-05-23] MEDS: LASIX TAB PO SCH (06:11)
[2021-05-23 06:20] LABS: BASOPHILS % (AUTO) 0.1 % (0.0-3.0); HEMATOCRIT 29.7 % (37.0-47.0); HEMOGLOBIN 9.8 g/dl (12.0-16.0); IMMATURE GRANULOCYTE # (AUTO) 0.1 (0.0-1.0); IMMATURE GRANULOCYTE % (AUTO) 0.6 % (0.0-5.0); LYMPHOCYTES # (AUTO) 0.6 K/uL (0.60-3.4); MEAN CORPUSCULAR HEMOGLOBIN 32.3 pg (27.0-31.0); MONOCYTES # (AUTO) 0.5 K/uL (0.4-2.0); MONOCYTES % (AUTO) 6.1 (0-10); NEUTROPHILS # (AUTO) 7.7 K/ul (2.0-6.9); NEUTROPHILS % (AUTO) 86.2 % (42.2-75.2); PLATELET COUNT 106 10^3/uL (140-440); RED BLOOD COUNT 3.03 10^6/ul (4.20-5.40); WHITE BLOOD COUNT 8.92 K/ul (4.6-10.2)
[2021-05-23 06:33] LABS: ALANINE AMINOTRANSFERASE 20.6 U/L (0-35); ALBUMIN 3.03 g/dL (3.5-5.0); ALKALINE PHOSPHATASE 93.8 U/L (53-141); ASPARTATE AMINO TRANSFERASE 34.6 U/L (14-36); BILIRUBIN,TOTAL 0.59 mg/dL (0.2-1.3); BLOOD UREA NITROGEN 29.1 mg/dL (7-17); CALCIUM 8.55 mg/dL (8.4-10.2); CARBON DIOXIDE 24.9 mmol/L (22-30.0); CHLORIDE 104.4 mmol/L (98-107); CREATININE 0.69 mg/dL (0.60-1.30); GLUCOSE 165.3 mg/dL (74-106); POTASSIUM 4.26 mmol/L (3.5-5.1); TOTAL PROTEIN 6.05 g/dL (6.3-8.2)
[2021-05-23 08:53] LABS: PROTHROMBIN TIME 10.7 SEC (9.3-11.0)
[2021-05-23] MEDS: ROCEPHIN 1 GM/50 ML D5W 1 GM/50 ML BAG IV SCH (10:38)
[2021-05-23] MEDS: LOVENOX SUBCUT SCH (10:39)
[2021-05-23] MEDS: ARAVA PO SCH (10:40)
[2021-05-23] MEDS: ASPIRIN EC PO SCH (10:41)
[2021-05-23] MEDS: LANOXIN PO SCH (10:41)
[2021-05-23] MEDS: ZINC-220 PO SCH (10:42)
[2021-05-23] MEDS: SYMBICORT 160-4.5 MCG INHALER IH SCH ×2 (10:42→20:19)
[2021-05-23] MEDS: CARDIZEM CD PO SCH (10:42)
[2021-05-23] MEDS: DECADRON IM SCH (10:42)
[2021-05-23] MEDS: [UNRECOGNIZED DRUG - OTHER] PO SCH (10:43)
[2021-05-23] MEDS: VIT C E ZN COPPR LUTEIN ZEAXAN PO SCH (10:43)
[2021-05-23] MEDS: VITAMIN D PO SCH (10:43)
[2021-05-23] MEDS: VEKLURY 100 MG in SODIUM CHLORIDE 250 ML IV SCH (11:28)
--- NOTE | 2021-05-23 13:30 | PCM.PROG ---
Date Seen by Provider: 05/23/21 Time Seen by Provider: 09:30 Subjective: The patient is examined in her room.Advised that her a fib is under improved control, Objective: Vitals: T=97.0 F, P=86, R=16, UG=387/66, SPO2=92 HEENT: Clear Neck: soft supple; neg JVD.Carotic upstrokes symmetrically equal Lungs:CTA-AF CVS: HR Irreg irreg Abdomen: soft non tender Extremities: Neg edema Neurological: normal Skin: Good Turgor Lab/Tests/Diagnostic Imaging: CT Chest:The heart is enlarged without pericardial effusion. Postoperative changes are seen relation to the aortic valve. There is no pulmonary embolus. There are marked emphysematous changes. There are upper lobe metastatic pulmonary nodules, largest of which measures 2.2 x 1.1 cm anteriorly within the left upper lobe. The largest right upper lobe pulmonary nodule 1.5 cm. There is a single lead millimeter left lower needed.. Consolidation compatible pneumonia is noted at the right lung base. There is minimal atelectasis at the left lung base. Gallstones are seen within the gallbladder. There is fullness of the right pelvocaliceal system and visualized proximal ureter.. Bone windows reveals no evidence of lytic or blastic lesions. CTAbdomenThere are upper lobe metastatic pulmonary nodules, largest of which measures 2.2 x 1.1 cm anteriorly within the left upper lobe. The largest right upper lobe pulmonary nodule 1.5 cm. There is a single lead millimeter left lower needed.. Consolidation compatible pneumonia is noted at the right lung ba se. There is minimal atelectasis at the left lung base. Gallstones are seen within the gallbladder. There is fullness of the right pelvocaliceal system and visualized proximal ureter.. Bone windows reveals no evidence of lytic or blastic lesions. (1) Atrial fibrillation with RVR: Status: Acute Code(s): I48.91 - Unspecified atrial fibrillation SNOMED Code(s): 598615520986743 (2) COVID-19: Status: Acute Code(s): U07.1 - COVID-19 SNOMED Code(s): 535921744 (3) Bilateral interstitial pneumonia: Status: Acute Code(s): J84.9 - Interstitial pulmonary disease, unspecified SNOMED Code(s): 49804527 (4) Multiple pulmonary nodules: Status: Acute Code(s): R91.8 - Other nonspecific abnormal finding of lung field SNOMED Code(s): 619712290 Assessment: These were present On CT Chest in 09/2020 Plan: Continue current therapy for treatment atrial fib To review with family attemptng to determine low long present and disire for additioial eval
[2021-05-23] MEDS: LIPITOR PO SCH (17:08)
[2021-05-23] MEDS: SODIUM CHLORIDE 1,000 ML IV SCH (17:19)
[2021-05-24] MEDS: VENTOLIN HFA (PER PUFF-WITH SPACER) IH SCH ×3 (04:35→20:10)
[2021-05-24 05:52] LABS: HEMATOCRIT 29.1 % (37.0-47.0); HEMOGLOBIN 9.7 g/dl (12.0-16.0); IMMATURE GRANULOCYTE % (AUTO) 0.6 % (0.0-5.0); LYMPHOCYTES # (AUTO) 0.4 K/uL (0.60-3.4); LYMPHOCYTES % (AUTO) 6.7 (10.0-50.0); MEAN CORPUSCULAR HEMOGLOBIN 31.8 pg (27.0-31.0); MEAN CORPUSCULAR HGB CONC 33.3 (31.8-35.4); MEAN CORPUSCULAR VOLUME 95.4 fl (81.0-99.0); MONOCYTES # (AUTO) 0.5 K/uL (0.4-2.0); MONOCYTES % (AUTO) 9.6 (0-10); NEUTROPHILS # (AUTO) 4.5 K/ul (2.0-6.9); NEUTROPHILS % (AUTO) 83.1 % (42.2-75.2); PLATELET COUNT 110 10^3/uL (140-440); RDW COEFFICIENT OF VARIATION 14.7 % (11.6-14.8); RED BLOOD COUNT 3.05 10^6/ul (4.20-5.40); WHITE BLOOD COUNT 5.39 K/ul (4.6-10.2)
[2021-05-24] MEDS: PEPCID PO SCH (06:03)
[2021-05-24] MEDS: LASIX TAB PO SCH (06:03)
[2021-05-24 06:05] LABS: ALANINE AMINOTRANSFERASE 22.8 U/L (0-35); ALBUMIN 2.94 g/dL (3.5-5.0); ALKALINE PHOSPHATASE 89.7 U/L (53-141); ASPARTATE AMINO TRANSFERASE 33.7 U/L (14-36); BILIRUBIN,TOTAL 0.67 mg/dL (0.2-1.3); BLOOD UREA NITROGEN 21.4 mg/dL (7-17); CALCIUM 8.56 mg/dL (8.4-10.2); CHLORIDE 102.2 mmol/L (98-107); CREATININE 0.66 mg/dL (0.60-1.30); GLUCOSE 218.5 mg/dL (74-106); POTASSIUM 4.09 mmol/L (3.5-5.1); SODIUM 132.7 mmol/L (134.5-145); TOTAL PROTEIN 5.81 g/dL (6.3-8.2)
[2021-05-24 06:10] LABS: PROTHROMBIN TIME 10.7 SEC (9.3-11.0)
[2021-05-24] MEDS: LANOXIN PO SCH (08:12)
[2021-05-24] MEDS: ZINC-220 PO SCH (08:12)
[2021-05-24] MEDS: VITAMIN D PO SCH (08:13)
[2021-05-24] MEDS: ARAVA PO SCH (08:13)
[2021-05-24] MEDS: CARDIZEM CD PO SCH (08:13)
[2021-05-24] MEDS: DECADRON IM SCH (08:13)
[2021-05-24] MEDS: ASPIRIN EC PO SCH (08:13)
[2021-05-24] MEDS: [UNRECOGNIZED DRUG - OTHER] PO SCH (08:14)
[2021-05-24] MEDS: SYMBICORT 160-4.5 MCG INHALER IH SCH ×2 (08:14→21:01)
[2021-05-24] MEDS: LOVENOX SUBCUT SCH (08:14)
[2021-05-24] MEDS: VIT C E ZN COPPR LUTEIN ZEAXAN PO SCH (08:14)
--- NOTE | 2021-05-24 08:30 | PCM.PROG ---
Date Seen by Provider: 05/24/21 Time Seen by Provider: 07:55 Subjective: Pt breathing much better. Her Afib remains resolved. Her only complaint today is a feeling of general weakness. Denies any F/C/N/V/CP/AP/SOB. Objective: Vitals: T=97.3 F, P=101, R=16, TW=087/65, SPO2=92 HEENT: PERRL Neck: supple Lungs: clera CVS: RRR Abdomen: soft, non tender Neurological: non focal exam Lab/Tests/Diagnostic Imaging: (1) Atrial fibrillation with RVR: Status: Acute Code(s): I48.91 - Unspecified atrial fibrillation SNOMED Code(s): 949648947966519 (2) COVID-19: Status: Acute Code(s): U07.1 - COVID-19 SNOMED Code(s): 004015380 (3) Bilateral interstitial pneumonia: Status: Acute Code(s): J84.9 - Interstitial pulmonary disease, unspecified SNOMED Code(s): 91447960 (4) Multiple pulmonary nodules: Status: Acute Code(s): R91.8 - Other nonspecific abnormal finding of lung field SNOMED Code(s): 359253581 Plan: 1. Afib w/ RVR: Has converted and remains converted. Doing well on medications. No changes today. 2. Covid 19: Has been weened of O2 and remains at around 94% on RA. Complains of weakness and lives by herself. Will have PT evaluate the patient to determine what she may need at home.
--- NOTE | 2021-05-24 10:27 | RS.PTINEVL ---
Subjective - Patient information Date of Evaluation: 05/24/21 Date of Arrival on Unit: 05/20/21 Admitted From:: Home Diagnosis: COVID pneumonia, afib Usual Living Arrangement: Alone Home Environment: House, Stairs (few), Rail Medical History: Dementia, Arthritis Medical History Comments:: aortic stenosis Surgical History: Hysterectomy Medications: see chart Subjective Information/ Patient Comments:: pt states that she is hoping to go home today. (Nursing reports pt not going home today). When transferring bed to [facility] pt states "You are going to have to get out of my way." I assured pt that I had to hold her gait belt because I had not seen her transfer before. pt refuses to try rwx, states "people my age are just wobbly." Explained to pt that PT can help with strengthening and balance activities to improve safety with gait. 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 Current Level of Function: Partially Dependent Current Equipment Used at Home: none Interventions - Objective Patient Orientation: Person, Place, Situation Current Interventions: IV's, Telemetry Range of Motion - ROM Right Upper Extremity AROM: WFL's Left Upper Extremity AROM: WFL's Right Lower Extremity AROM: WFL's Left Lower Extremity AROM: WFL's Muscle Strength - Muscle Strength Right Upper Extremity Strength: Mild Weakness (grossly 4/5) Left Upper Extremity Strength: Mild Weakness (grossly 4/5) Right Lower Extremity Strength: Mild Weakness (hip flex 4-/5, knee flex/ext 4/5, ankle DF/PF 4/5) Left Lower Extremity Strength: Mild Weakness (hip flex 4-/5, knee flex/ext 4/5, ankle DF/PF 4/5) Sensation - Sensation Right Upper Extremity Sensation: Intact/Normal Left Upper Extremity Sensation: Intact/Normal Right Lower Extremity Sensation: Intact/Normal Left Lower Extremity Sensation: Intact/Normal Palpation Palpation Findings: None/Normal Balance - Sitting Balance and Reactions Static Sitting Balance: Good Dynamic Sitting Balance: Fair - Standing Balance and Reactions Static Standing Balance: Fair Dynamic Standing Balance: Poor Standing Equilibrium Reactions: Delayed Left, Delayed Right Standing Protective Reactions: Delayed Left, Delayed Right - Comments Balance Assessment Comments: when making turns pt lost balance required min assist to prevent falls. pt refuses to use AD. Functional Mobility - Bed Mobility Rolling R/L: Independent Scooting: Independent Supine to Sit: Independent - Transfers Sit to Stand: CGA Stand to Sit: CGA Stand Pivot Transfers: CGA - Safety Awareness Safety Awareness: Fair GUILLERMO INDEX SCORE: 74 Ambulation - Ambulation Assistive Device Used: Gait belt Orthotic/Prosthetic Device: No Distance: 40ft Assistance needed with Ambulation: CGA Gait Deviations: Deviates from path Ambulation Comments: pt occasionally scissors with turns and loses balance. Feel pt would benefit from use of rwx however pt adamantly refuses. Factors Affecting Ambulation: Decreased Balance, Weakness, Decreased Safety, Limited Endurance Treatment time - Time with patient Length of Evaluation: 23 Total treatment time: 26 Patient Education - Education Patient Education: Home Safety, Education of Plan of Care Teaching Recipient: Patient Teaching Methods: Discussion Comments: discussion with patient regarding home safety and my recommendation for use of assistive device, also discussed with her that I recommend she get PT at home health after dc to work on strengthening. Assessment - Assessment Problem List:: Decreased level of function, Requires training/education, Decreased safety/Risk of falls, Weakness Rehab Potential: Good Further Therapy Indicated?: Yes Candidate for Swing Bed for Therapy Services?: Feel pt may not be a candidate for swing bed due to high level of function. Feel pt would benefit from home health for PT for home safety, strengthening and balance. Evaluation Complexity: HISTORY: Medium, EXAM OF BODY SYSTEMS: Medium, CLINICAL PRESENTATION: Medium, CLINICAL DECISION MAKING: Medium Patient's Goal(s): "go home" Short Term Goals GOAL #1: pt transfer sit to/from stand SBA Goal to be met by: 05/26/21 GOAL #2: pt amb in room with CGA to SBA with no LOB Goal to be met by: 05/26/21 GOAL #3: Improve strength BLE 4 to 4+/5 Goal to be met by: 05/26/21 Intermediate Goals GOAL #1: Improve dyn stand balance fair Goal to be met by: 05/28/21 GOAL #2: pt transfer sit to/from stand independently Goal to be met by: 05/28/21 GOAL #3: pt amb functional distances with SB to independent Goal to be met by: 05/28/21 Plan Plan of Care: Therapeutic EX, Therapeutic Activity Other:: gait training Frequency of Treatment: 1-2 X day, as tolerated Duration of Treatment: 4 days Anticipated Discharge Destination: Home Treatment Diagnosis (ICD 10 Codes): COVID U071.1. balance impaired R 26.81. gait difficulty R 26.2. weakness M62.81 Has the Physician been added for Co-signature?: Yes
[2021-05-24] MEDS: VEKLURY 100 MG in SODIUM CHLORIDE 250 ML IV SCH (12:18)
[2021-05-24] MEDS: LIPITOR PO SCH (17:42)
[2021-05-24] MEDS: SODIUM CHLORIDE 1,000 ML IV SCH (18:44)
[2021-05-25] MEDS: VENTOLIN HFA (PER PUFF-WITH SPACER) IH SCH ×3 (05:05→20:05)
[2021-05-25 05:19] LABS: BASOPHILS % (AUTO) 0.1 % (0.0-3.0); HEMATOCRIT 31.1 % (37.0-47.0); HEMOGLOBIN 10.2 g/dl (12.0-16.0); IMMATURE GRANULOCYTE % (AUTO) 0.6 % (0.0-5.0); LYMPHOCYTES # (AUTO) 0.5 K/uL (0.60-3.4); LYMPHOCYTES % (AUTO) 7.3 (10.0-50.0); MEAN CORPUSCULAR HEMOGLOBIN 31.3 pg (27.0-31.0); MEAN CORPUSCULAR HGB CONC 32.8 (31.8-35.4); MEAN CORPUSCULAR VOLUME 95.4 fl (81.0-99.0); MONOCYTES # (AUTO) 0.8 K/uL (0.4-2.0); MONOCYTES % (AUTO) 10.9 (0-10); NEUTROPHILS # (AUTO) 5.6 K/ul (2.0-6.9); NEUTROPHILS % (AUTO) 81.1 % (42.2-75.2); PLATELET COUNT 127 10^3/uL (140-440); RDW COEFFICIENT OF VARIATION 14.5 % (11.6-14.8); RED BLOOD COUNT 3.26 10^6/ul (4.20-5.40); WHITE BLOOD COUNT 6.96 K/ul (4.6-10.2)
[2021-05-25 05:31] LABS: ALANINE AMINOTRANSFERASE 33.1 U/L (0-35); ALKALINE PHOSPHATASE 102.7 U/L (53-141); ASPARTATE AMINO TRANSFERASE 50.3 U/L (14-36); BILIRUBIN,TOTAL 0.8 mg/dL (0.2-1.3); BLOOD UREA NITROGEN 24.2 mg/dL (7-17); CALCIUM 8.93 mg/dL (8.4-10.2); CARBON DIOXIDE 29.3 mmol/L (22-30.0); CHLORIDE 99.9 mmol/L (98-107); CREATININE 0.63 mg/dL (0.60-1.30); GLUCOSE 228.2 mg/dL (74-106); SODIUM 131.5 mmol/L (134.5-145); TOTAL PROTEIN 5.87 g/dL (6.3-8.2)
[2021-05-25 05:45] LABS: ALBUMIN 2.97 g/dL (3.5-5.0)
[2021-05-25] MEDS: LASIX TAB PO SCH (05:47)
[2021-05-25] MEDS: PEPCID PO SCH (05:47)
[2021-05-25] MEDS: VITAMIN D PO SCH (08:20)
[2021-05-25] MEDS: ASPIRIN EC PO SCH (08:21)
[2021-05-25] MEDS: LANOXIN PO SCH (08:21)
[2021-05-25] MEDS: ZINC-220 PO SCH (08:21)
[2021-05-25] MEDS: CARDIZEM CD PO SCH (08:22)
[2021-05-25] MEDS: ARAVA PO SCH (08:22)
[2021-05-25] MEDS: SYMBICORT 160-4.5 MCG INHALER IH SCH ×2 (08:22→20:15)
[2021-05-25] MEDS: LOVENOX SUBCUT SCH (08:22)
[2021-05-25] MEDS: [UNRECOGNIZED DRUG - OTHER] PO SCH (08:27)
[2021-05-25] MEDS: VIT C E ZN COPPR LUTEIN ZEAXAN PO SCH (08:27)
[2021-05-25] MEDS: DECADRON IVP SCH (09:13)
[2021-05-25] MEDS: VEKLURY 100 MG in SODIUM CHLORIDE 250 ML IV SCH (12:30)
--- NOTE | 2021-05-25 13:04 | PCM.PROG ---
Date Seen by Provider: 05/25/21 Subjective: pt improving, vss, today is the last day for Remdesivir, however, pt is still unable to provide self care in independent living, and the PT eval indicates pt will need home PT which they have not set up yet and they are unavailable until Thursday Objective: Vitals: T=98.1 F, P=94, R=14, ND=064/65, SPO2=95 HEENT: []eomi Neck: []supple Lungs: [] no respiratory distress CVS: []regular rate Abdomen: []nondistended Extremities: []general weakness Neurological: []alert Skin: [] no cyanosis Lab/Tests/Diagnostic Imaging: [] (1) Atrial fibrillation with RVR: Status: Acute Code(s): I48.91 - Unspecified atrial fibrillation SNOMED Code(s): 331590917528727 (2) COVID-19: Status: Acute Code(s): U07.1 - COVID-19 SNOMED Code(s): 871245231 (3) Bilateral interstitial pneumonia: Status: Acute Code(s): J84.9 - Interstitial pulmonary disease, unspecified SNOMED Code(s): 58308212 (4) Multiple pulmonary nodules: Status: Acute Code(s): R91.8 - Other nonspecific abnormal finding of lung field SNOMED Code(s): 617941864 Plan: await home PT plan for discharge care to Dr Watts at 19:00
[2021-05-25] MEDS: LIPITOR PO SCH (17:36)
[2021-05-26] MEDS: SODIUM CHLORIDE 1,000 ML IV SCH (04:53)
[2021-05-26] MEDS: VENTOLIN HFA (PER PUFF-WITH SPACER) IH SCH ×3 (05:00→19:50)
[2021-05-26] MEDS: LASIX TAB PO SCH (05:33)
[2021-05-26] MEDS: PEPCID PO SCH (05:33)
[2021-05-26 05:45] LABS: BASOPHILS % (AUTO) 0.3 % (0.0-3.0); HEMATOCRIT 32.3 % (37.0-47.0); HEMOGLOBIN 10.7 g/dl (12.0-16.0); IMMATURE GRANULOCYTE # (AUTO) 0.1 (0.0-1.0); IMMATURE GRANULOCYTE % (AUTO) 1.7 % (0.0-5.0); LYMPHOCYTES # (AUTO) 0.6 K/uL (0.60-3.4); MEAN CORPUSCULAR HEMOGLOBIN 31.1 pg (27.0-31.0); MEAN CORPUSCULAR HGB CONC 33.1 (31.8-35.4); MEAN CORPUSCULAR VOLUME 93.9 fl (81.0-99.0); MONOCYTES # (AUTO) 0.8 K/uL (0.4-2.0); MONOCYTES % (AUTO) 12.7 (0-10); NEUTROPHILS # (AUTO) 4.9 K/ul (2.0-6.9); NEUTROPHILS % (AUTO) 76.3 % (42.2-75.2); PLATELET COUNT 153 10^3/uL (140-440); RDW COEFFICIENT OF VARIATION 14.3 % (11.6-14.8); RED BLOOD COUNT 3.44 10^6/ul (4.20-5.40); WHITE BLOOD COUNT 6.44 K/ul (4.6-10.2)
[2021-05-26 05:56] LABS: ALANINE AMINOTRANSFERASE 37.1 U/L (0-35); ALBUMIN 2.99 g/dL (3.5-5.0); ALKALINE PHOSPHATASE 108.3 U/L (53-141); ASPARTATE AMINO TRANSFERASE 39.8 U/L (14-36); BILIRUBIN,TOTAL 0.85 mg/dL (0.2-1.3); BLOOD UREA NITROGEN 26.9 mg/dL (7-17); CALCIUM 9.15 mg/dL (8.4-10.2); CHLORIDE 97.6 mmol/L (98-107); CREATININE 0.64 mg/dL (0.60-1.30); GLUCOSE 265.4 mg/dL (74-106); POTASSIUM 3.89 mmol/L (3.5-5.1); SODIUM 130.1 mmol/L (134.5-145); TOTAL PROTEIN 5.84 g/dL (6.3-8.2)
[2021-05-26 06:06] LABS: PROTHROMBIN TIME 11.4 SEC (9.3-11.0)
[2021-05-26] MEDS: LOVENOX SUBCUT SCH (08:35)
[2021-05-26] MEDS: ASPIRIN EC PO SCH (08:37)
[2021-05-26] MEDS: VITAMIN D PO SCH (08:37)
[2021-05-26] MEDS: LANOXIN PO SCH (08:38)
[2021-05-26] MEDS: CARDIZEM CD PO SCH (08:39)
[2021-05-26] MEDS: ARAVA PO SCH (08:39)
[2021-05-26] MEDS: ZINC-220 PO SCH (08:39)
[2021-05-26] MEDS: SYMBICORT 160-4.5 MCG INHALER IH SCH ×2 (08:42→20:19)
[2021-05-26] MEDS: DECADRON IVP SCH (08:50)
[2021-05-26] MEDS: VIT C E ZN COPPR LUTEIN ZEAXAN PO SCH (08:58)
[2021-05-26] MEDS: [UNRECOGNIZED DRUG - OTHER] PO SCH (08:58)
[2021-05-26] MEDS ORDERED: ARAVA PO SCH (09:00)
--- NOTE | 2021-05-26 09:16 | PCM.PROG ---
Date Seen by Provider: 05/26/21 Subjective: pt continues to improve, vss, appetite good, needs case management to set up home health tomorrow before discharge Objective: Vitals: T=97.5 F, P=132, R=20, JQ=443/72, SPO2=93 HEENT: []conjunctiva clear Neck: []supple Lungs: [] no respiratory distress CVS: []no chest pain Abdomen: []nondistended Extremities: []rom Neurological: []alert and awake Skin: []no cyanosis Lab/Tests/Diagnostic Imaging: [] (1) Atrial fibrillation with RVR: Status: Acute Code(s): I48.91 - Unspecified atrial fibrillation SNOMED Code(s): 668080247696980 (2) COVID-19: Status: Acute Code(s): U07.1 - COVID-19 SNOMED Code(s): 420599210 (3) Bilateral interstitial pneumonia: Status: Acute Code(s): J84.9 - Interstitial pulmonary disease, unspecified SNOMED Code(s): 37294043 (4) Multiple pulmonary nodules: Status: Acute Code(s): R91.8 - Other nonspecific abnormal finding of lung field SNOMED Code(s): 101925147 Plan: discharge home in the morning after case management sets up home health care to Dr Shaw at 19:00
[2021-05-26] MEDS: LIPITOR PO SCH (17:40)
[2021-05-27] MEDS: VENTOLIN HFA (PER PUFF-WITH SPACER) IH SCH (04:55)
[2021-05-27 05:10] LABS: PROTHROMBIN TIME 11.4 SEC (9.3-11.0)
[2021-05-27 05:16] LABS: ALBUMIN 2.82 g/dL (3.5-5.0); ALKALINE PHOSPHATASE 104.5 U/L (53-141); ASPARTATE AMINO TRANSFERASE 30.8 U/L (14-36); BILIRUBIN,TOTAL 0.79 mg/dL (0.2-1.3); BLOOD UREA NITROGEN 28.5 mg/dL (7-17); CALCIUM 9.1 mg/dL (8.4-10.2); CARBON DIOXIDE 34.1 mmol/L (22-30.0); CHLORIDE 94.1 mmol/L (98-107); CREATININE 0.68 mg/dL (0.60-1.30); GLUCOSE 292.8 mg/dL (74-106); POTASSIUM 3.85 mmol/L (3.5-5.1); SODIUM 129.4 mmol/L (134.5-145); TOTAL PROTEIN 5.55 g/dL (6.3-8.2)
[2021-05-27 05:28] VITALS: BP 110/59; TEMP 98.4
[2021-05-27] MEDS: LASIX TAB PO SCH (05:37)
[2021-05-27] MEDS: PEPCID PO SCH (05:38)
[2021-05-27] MEDS: LOVENOX SUBCUT SCH (08:27)
[2021-05-27] MEDS: DECADRON IVP SCH (08:28)
[2021-05-27] MEDS: ARAVA PO SCH (08:28)
[2021-05-27] MEDS: CARDIZEM CD PO SCH (08:29)
[2021-05-27] MEDS: ASPIRIN EC PO SCH (08:29)
[2021-05-27] MEDS: ZINC-220 PO SCH (08:29)
[2021-05-27] MEDS: LANOXIN PO SCH (08:29)
[2021-05-27] MEDS: VITAMIN D PO SCH (08:29)
[2021-05-27] MEDS: [UNRECOGNIZED DRUG - OTHER] PO SCH (08:30)
[2021-05-27] MEDS: VIT C E ZN COPPR LUTEIN ZEAXAN PO SCH (08:30)
[2021-05-27] MEDS: SYMBICORT 160-4.5 MCG INHALER IH SCH (08:30)
--- NOTE | 2021-05-27 13:33 | PCM.DC ---
Final Diagnosis: COVID infection with GI symptoms and pneumonia. Atrial fibrillation with RVR exacerbation. Generalized weakness and debility. (1) Atrial fibrillation with RVR: Status: Acute Code(s): I48.91 - Unspecified atrial fibrillation SNOMED Code(s): 575191934919806 (2) COVID-19: Status: Acute Code(s): U07.1 - COVID-19 SNOMED Code(s): 869918874 (3) Bilateral interstitial pneumonia: Status: Acute Code(s): J84.9 - Interstitial pulmonary disease, unspecified SNOMED Code(s): 67052221 (4) Multiple pulmonary nodules: Status: Acute Code(s): R91.8 - Other nonspecific abnormal finding of lung field SNOMED Code(s): 547288110 Reason for Hospitalization: Admitted with GI symptoms of N,V,D and dx with COVID. Found to have a mild pneumonia as well, and exacerbation of A-fib with RVR. Prognosis/Condition at Discharge: Stable. DNR status. Medications at Discharge: Ambulatory Orders Medication Instructions Recorded aspirin 81 mg tablet,delayed 81 mg PO DAILYWM 06/23/16 release metoprolol tartrate 50 mg tablet 50 mg PO DAILY 06/23/16 atorvastatin 40 mg tablet 40 mg PO DAILY 01/20/18 leflunomide 10 mg tablet 10 mg PO DAILY 01/20/18 vit C 250 mg-vit E 90 mg-zinc 40 1 ea PO DAILY 01/20/18 mg-copper 1 [id number] capsule (PreserVision AREDS-2) diltiazem HCl 180 mg 360 mg PO DAILY 08/30/20 capsule,extended release 24 hr digoxin 125 mcg (0.125 mg) tablet 125 mcg PO QDAY 02/06/21 furosemide 20 mg tablet 20 mg PO QDAY 02/06/21 Lab/Diagnostics: Laboratory Tests 05/20/21 05/20/21 05/20/21 17:33 17:42 17:42 WBC 7.54 RBC 3.67 L Hgb 11.7 L Hct 36.0 L MCV 98.1 MCH 31.9 H MCHC 32.5 RDW Coeff of Vanessa 14.9 H Plt Count 118 L Immature Gran % (Auto) 0.3 Neut % (Auto) 79.5 H Lymph % (Auto) 11.3 Porter % (Auto) 8.8 Eos % (Auto) 0.0 Baso % (Auto) 0.1 Neut # (Auto) 6.0 Lymph # (Auto) 0.9 Porter # (Auto) 0.7 Eos # (Auto) 0.0 Baso # (Auto) 0.0 Immature Gran # (Auto) 0.0 PT INR Puncture Site Base Excess O2 Saturation ABG pH ABG pCO2 ABG pO2 ABG HCO3 ABG Total CO2 Americo Test Hemoglobin Oxyhemoglobin Carboxyhemoglobin Total Hemoglobin O2 Delivery Device Oxygen Liter Flow FiO2 % Sodium 134.3 L Potassium 3.55 Chloride 100.0 Carbon Dioxide 28.5 Anion Gap 9.35 BUN 27.0 H Creatinine 1.14 Estimated GFR (MDRD) 45.00 BUN/Creatinine Ratio 23.68 Glucose 145.7 H Lactic Acid Calcium 9.17 Magnesium Ferritin Total Bilirubin 0.94 AST 53.5 H ALT 19.7 Alkaline Phosphatase 103.4 Lactate Dehydrogenase Troponin I C-Reactive Prot, Quant NT-Pro-B Natriuret Pep Total Protein 7.30 Albumin 3.89 Globulin 3.41 Albumin/Globulin Ratio 1.14 Amylase 89.0 Lipase 75.3 Procalcitonin D-Dimer Urine Color Urine Clarity Urine pH Ur Specific Carroll Urine Protein Urine Glucose (UA) Urine Ketones Urine Blood Urine Nitrite Urine Bilirubin Urine Urobilinogen Ur Leukocyte Esterase Urine Microscopic RBC Urine Microscopic WBC Ur Squamous Epith Cells Ur Renal Epithelial Cell Amorphous Sediment Fine Granular Casts Stl Occult Blood (IFOB) Stool Occult Blood #2 Stool Occult Blood #3 Digoxin Influ A Molecular Assay Influ B Molecular Assay RSV Antigen SARS CoV-2 RNA Rapid JULIEN Positive H 05/20/21 05/20/21 05/20/21 17:42 17:49 17:49 WBC RBC Hgb Hct MCV MCH MCHC RDW Coeff of Vanessa Plt Count Immature Gran % (Auto) Neut % (Auto) Lymph % (Auto) Porter % (Auto) Eos % (Auto) Baso % (Auto) Neut # (Auto) Lymph # (Auto) Porter # (Auto) Eos # (Auto) Baso # (Auto) Immature Gran # (Auto) PT INR Puncture Site Base Excess O2 Saturation ABG pH ABG pCO2 ABG pO2 ABG HCO3 ABG Total CO2 Americo Test Hemoglobin Oxyhemoglobin Carboxyhemoglobin Total Hemoglobin O2 Delivery Device Oxygen Liter Flow FiO2 % Sodium Potassium Chloride Carbon Dioxide Anion Gap BUN Creatinine Estimated GFR (MDRD) BUN/Creatinine Ratio Glucose Lactic Acid 2.20 H Calcium Magnesium Ferritin Total Bilirubin AST ALT Alkaline Phosphatase Lactate Dehydrogenase Troponin I C-Reactive Prot, Quant NT-Pro-B Natriuret Pep Total Protein Albumin Globulin Albumin/Globulin Ratio Amylase Lipase Procalcitonin 0.43 H D-Dimer Urine Color Urine Clarity Urine pH Ur Specific Carroll Urine Protein Urine Glucose (UA) Urine Ketones Urine Blood Urine Nitrite Urine Bilirubin Urine Urobilinogen Ur Leukocyte Esterase Urine Microscopic RBC Urine Microscopic WBC Ur Squamous Epith Cells Ur Renal Epithelial Cell Amorphous Sediment Fine Granular Casts Stl Occult Blood (IFOB) Stool Occult Blood #2 Stool Occult Blood #3 Digoxin Influ A Molecular Assay Negative by naat Influ B Molecular Assay Negative by naat RSV Antigen Negative by naat SARS CoV-2 RNA Rapid JULIEN 05/20/21 05/20/21 05/21/21 18:40 20:30 05:10 WBC RBC Hgb Hct MCV MCH MCHC RDW Coeff of Vanessa Plt Count Immature Gran % (Auto) Neut % (Auto) Lymph % (Auto) Porter % (Auto) Eos % (Auto) Baso % (Auto) Neut # (Auto) Lymph # (Auto) Porter # (Auto) Eos # (Auto) Baso # (Auto) Immature Gran # (Auto) PT INR Puncture Site Lbrach [place] Base Excess 4.0 H 3.4 H O2 Saturation 83.9 L 95.5 ABG pH 7.47 H 7.42 ABG pCO2 38.0 43.0 ABG pO2 45.0 L* 77.0 L ABG HCO3 27.7 27.9 ABG Total CO2 28.9 H 29.2 H Americo Test + + Hemoglobin 1.0 0 Oxyhemoglobin 81.5 L 93.9 L Carboxyhemoglobin 0.5 1.2 Total Hemoglobin 11.5 L 11.8 O2 Delivery Device Nc Oxygen Liter Flow 5.00 FiO2 % 21.0 Sodium Potassium Chloride Carbon Dioxide Anion Gap BUN Creatinine Estimated GFR (MDRD) BUN/Creatinine Ratio Glucose Lactic Acid Calcium Magnesium Ferritin Total Bilirubin AST ALT Alkaline Phosphatase Lactate Dehydrogenase Troponin I C-Reactive Prot, Quant NT-Pro-B Natriuret Pep Total Protein Albumin Globulin Albumin/Globulin Ratio Amylase Lipase Procalcitonin D-Dimer Urine Color Yellow Urine Clarity Clear Urine pH 7.0 Ur Specific Carroll 1.020 Urine Protein 2+ H Urine Glucose (UA) Negative Urine Ketones Negative Urine Blood 1+ H Urine Nitrite Negative Urine Bilirubin Negative Urine Urobilinogen 0.2 Ur Leukocyte Esterase Negative Urine Microscopic RBC 2-5 Urine Microscopic WBC 5-10 Ur Squamous Epith Cells 0-2 Ur Renal Epithelial Cell 2-5 Amorphous Sediment Trace Fine Granular Casts 5-10 Stl Occult Blood (IFOB) Stool Occult Blood #2 Stool Occult Blood #3 Digoxin Influ A Molecular Assay Influ B Molecular Assay RSV Antigen SARS CoV-2 RNA Rapid JULIEN 05/21/21 05/21/21 05/21/21 05:31 05:31 05:31 WBC RBC Hgb Hct MCV MCH MCHC RDW Coeff of Vanessa Plt Count Immature Gran % (Auto) Neut % (Auto) Lymph % (Auto) Porter % (Auto) Eos % (Auto) Baso % (Auto) Neut # (Auto) Lymph # (Auto) Porter # (Auto) Eos # (Auto) Baso # (Auto) Immature Gran # (Auto) PT 11.4 H INR 1.11 Puncture Site Base Excess O2 Saturation ABG pH ABG pCO2 ABG pO2 ABG HCO3 ABG Total CO2 Americo Test Hemoglobin Oxyhemoglobin Carboxyhemoglobin Total Hemoglobin O2 Delivery Device Oxygen Liter Flow FiO2 % Sodium Potassium Chloride Carbon Dioxide Anion Gap BUN Creatinine Estimated GFR (MDRD) BUN/Creatinine Ratio Glucose Lactic Acid Calcium Magnesium Ferritin 161.00 Total Bilirubin AST ALT Alkaline Phosphatase Lactate Dehydrogenase 435 H Troponin I 0.126 H C-Reactive Prot, Quant 127 H NT-Pro-B Natriuret Pep Total Protein Albumin Globulin Albumin/Globulin Ratio Amylase Lipase Procalcitonin D-Dimer Urine Color Urine Clarity Urine pH Ur Specific Carroll Urine Protein Urine Glucose (UA) Urine Ketones Urine Blood Urine Nitrite Urine Bilirubin Urine Urobilinogen Ur Leukocyte Esterase Urine Microscopic RBC Urine Microscopic WBC Ur Squamous Epith Cells Ur Renal Epithelial Cell Amorphous Sediment Fine Granular Casts Stl Occult Blood (IFOB) Stool Occult Blood #2 Stool Occult Blood #3 Digoxin Influ A Molecular Assay Influ B Molecular Assay RSV Antigen SARS CoV-2 RNA Rapid JULIEN 05/21/21 05/21/21 05/21/21 05:31 05:41 10:50 WBC RBC Hgb Hct MCV MCH MCHC RDW Coeff of Vanessa Plt Count Immature Gran % (Auto) Neut % (Auto) Lymph % (Auto) Porter % (Auto) Eos % (Auto) Baso % (Auto) Neut # (Auto) Lymph # (Auto) Porter # (Auto) Eos # (Auto) Baso # (Auto) Immature Gran # (Auto) PT INR Puncture Site Base Excess O2 Saturation ABG pH ABG pCO2 ABG pO2 ABG HCO3 ABG Total CO2 Americo Test Hemoglobin Oxyhemoglobin Carboxyhemoglobin Total Hemoglobin O2 Delivery Device Oxygen Liter Flow FiO2 % Sodium 136.7 Potassium 3.60 Chloride 104.2 Carbon Dioxide 26.5 Anion Gap 9.60 BUN 26.3 H Creatinine 0.91 Estimated GFR (MDRD) 59.00 BUN/Creatinine Ratio 28.90 Glucose 164.9 H Lactic Acid Calcium 9.02 Magnesium 1.92 Ferritin Total Bilirubin AST ALT Alkaline Phosphatase Lactate Dehydrogenase Troponin I C-Reactive Prot, Quant NT-Pro-B Natriuret Pep 4730.000 H Total Protein Albumin Globulin Albumin/Globulin Ratio Amylase Lipase Procalcitonin D-Dimer 2328.27 H Urine Color Urine Clarity Urine pH Ur Specific Carroll Urine Protein Urine Glucose (UA) Urine Ketones Urine Blood Urine Nitrite Urine Bilirubin Urine Urobilinogen Ur Leukocyte Esterase Urine Microscopic RBC Urine Microscopic WBC Ur Squamous Epith Cells Ur Renal Epithelial Cell Amorphous Sediment Fine Granular Casts Stl Occult Blood (IFOB) Stool Occult Blood #2 Stool Occult Blood #3 Digoxin 0.70 L Influ A Molecular Assay Influ B Molecular Assay RSV Antigen SARS CoV-2 RNA Rapid JULIEN 05/22/21 05/22/21 05/22/21 04:15 05:24 05:24 WBC RBC Hgb Hct MCV MCH MCHC RDW Coeff of Vanessa Plt Count Immature Gran % (Auto) Neut % (Auto) Lymph % (Auto) Porter % (Auto) Eos % (Auto) Baso % (Auto) Neut # (Auto) Lymph # (Auto) Porter # (Auto) Eos # (Auto) Baso # (Auto) Immature Gran # (Auto) PT 11.0 INR 1.06 Puncture Site Lb Base Excess 5.2 H O2 Saturation 97.3 ABG pH 7.45 ABG pCO2 42.0 ABG pO2 90.0 ABG HCO3 29.2 H ABG Total CO2 30.5 H Americo Test + Hemoglobin 0.2 Oxyhemoglobin 94.8 L Carboxyhemoglobin 1.0 Total Hemoglobin 13.8 O2 Delivery Device Bnc Oxygen Liter Flow 5.00 FiO2 % 40.0 Sodium Potassium Chloride Carbon Dioxide Anion Gap BUN Creatinine Estimated GFR (MDRD) BUN/Creatinine Ratio Glucose Lactic Acid Calcium Magnesium Ferritin Total Bilirubin AST ALT Alkaline Phosphatase Lactate Dehydrogenase Troponin I C-Reactive Prot, Quant NT-Pro-B Natriuret Pep Total Protein Albumin Globulin Albumin/Globulin Ratio Amylase Lipase Procalcitonin D-Dimer 1643.47 H Urine Color Urine Clarity Urine pH Ur Specific Carroll Urine Protein Urine Glucose (UA) Urine Ketones Urine Blood Urine Nitrite Urine Bilirubin Urine Urobilinogen Ur Leukocyte Esterase Urine Microscopic RBC Urine Microscopic WBC Ur Squamous Epith Cells Ur Renal Epithelial Cell Amorphous Sediment Fine Granular Casts Stl Occult Blood (IFOB) Stool Occult Blood #2 Stool Occult Blood #3 Digoxin Influ A Molecular Assay Influ B Molecular Assay RSV Antigen SARS CoV-2 RNA Rapid JULIEN 05/22/21 05/22/21 05/22/21 05:24 05:24 05:24 WBC 11.52 H RBC 3.04 L Hgb 9.7 L Hct 29.4 L D MCV 96.7 MCH 31.9 H MCHC 33.0 RDW Coeff of Vanessa 14.9 H Plt Count 86 L Immature Gran % (Auto) 0.7 Neut % (Auto) 84.1 H Lymph % (Auto) 8.6 L Porter % (Auto) 6.5 Eos % (Auto) 0.0 Baso % (Auto) 0.1 Neut # (Auto) 9.7 H Lymph # (Auto) 1.0 Porter # (Auto) 0.8 Eos # (Auto) 0.0 Baso # (Auto) 0.0 Immature Gran # (Auto) 0.1 PT INR Puncture Site Base Excess O2 Saturation ABG pH ABG pCO2 ABG pO2 ABG HCO3 ABG Total CO2 Americo Test Hemoglobin Oxyhemoglobin Carboxyhemoglobin Total Hemoglobin O2 Delivery Device Oxygen Liter Flow FiO2 % Sodium 134.9 Potassium 3.37 L Chloride 103.7 Carbon Dioxide 29.0 Anion Gap 5.57 BUN 30.5 H Creatinine 0.73 Estimated GFR (MDRD) 76.00 BUN/Creatinine Ratio 41.78 Glucose 136.9 H Lactic Acid Calcium 8.45 Magnesium Ferritin 203.00 Total Bilirubin 0.66 AST 37.5 H ALT 18.5 Alkaline Phosphatase 81.6 Lactate Dehydrogenase Troponin I 0.047 C-Reactive Prot, Quant 124 H NT-Pro-B Natriuret Pep Total Protein 6.10 L Albumin 3.10 L Globulin 3.00 Albumin/Globulin Ratio 1.03 Amylase Lipase Procalcitonin D-Dimer Urine Color Urine Clarity Urine pH Ur Specific Carroll Urine Protein Urine Glucose (UA) Urine Ketones Urine Blood Urine Nitrite Urine Bilirubin Urine Urobilinogen Ur Leukocyte Esterase Urine Microscopic RBC Urine Microscopic WBC Ur Squamous Epith Cells Ur Renal Epithelial Cell Amorphous Sediment Fine Granular Casts Stl Occult Blood (IFOB) Stool Occult Blood #2 Stool Occult Blood #3 Digoxin Influ A Molecular Assay Influ B Molecular Assay RSV Antigen SARS CoV-2 RNA Rapid JULIEN 05/22/21 05/22/21 05/23/21 05:24 20:22 06:00 WBC RBC Hgb Hct MCV MCH MCHC RDW Coeff of Vanessa Plt Count Immature Gran % (Auto) Neut % (Auto) Lymph % (Auto) Porter % (Auto) Eos % (Auto) Baso % (Auto) Neut # (Auto) Lymph # (Auto) Porter # (Auto) Eos # (Auto) Baso # (Auto) Immature Gran # (Auto) PT 10.7 INR 1.03 Puncture Site Base Excess O2 Saturation ABG pH ABG pCO2 ABG pO2 ABG HCO3 ABG Total CO2 Americo Test Hemoglobin Oxyhemoglobin Carboxyhemoglobin Total Hemoglobin O2 Delivery Device Oxygen Liter Flow FiO2 % Sodium Potassium Chloride Carbon Dioxide Anion Gap BUN Creatinine Estimated GFR (MDRD) BUN/Creatinine Ratio Glucose Lactic Acid Calcium Magnesium Ferritin Total Bilirubin AST ALT Alkaline Phosphatase Lactate Dehydrogenase Troponin I C-Reactive Prot, Quant NT-Pro-B Natriuret Pep Total Protein Albumin Globulin Albumin/Globulin Ratio Amylase Lipase Procalcitonin D-Dimer Urine Color Urine Clarity Urine pH Ur Specific Carroll Urine Protein Urine Glucose (UA) Urine Ketones Urine Blood Urine Nitrite Urine Bilirubin Urine Urobilinogen Ur Leukocyte Esterase Urine Microscopic RBC Urine Microscopic WBC Ur Squamous Epith Cells Ur Renal Epithelial Cell Amorphous Sediment Fine Granular Casts Stl Occult Blood (IFOB) Negative Stool Occult Blood #2 No specimen received Stool Occult Blood #3 No specimen received Digoxin 0.78 L Influ A Molecular Assay Influ B Molecular Assay RSV Antigen SARS CoV-2 RNA Rapid JULIEN 05/23/21 05/23/21 05/23/21 06:10 06:10 06:10 WBC 8.92 RBC 3.03 L Hgb 9.8 L Hct 29.7 L MCV 98.0 MCH 32.3 H MCHC 33.0 RDW Coeff of Vanessa 15.0 H Plt Count 106 L Immature Gran % (Auto) 0.6 Neut % (Auto) 86.2 H Lymph % (Auto) 7.0 L Porter % (Auto) 6.1 Eos % (Auto) 0.0 Baso % (Auto) 0.1 Neut # (Auto) 7.7 H Lymph # (Auto) 0.6 Porter # (Auto) 0.5 Eos # (Auto) 0.0 Baso # (Auto) 0.0 Immature Gran # (Auto) 0.1 PT INR Puncture Site Base Excess O2 Saturation ABG pH ABG pCO2 ABG pO2 ABG HCO3 ABG Total CO2 Americo Test Hemoglobin Oxyhemoglobin Carboxyhemoglobin Total Hemoglobin O2 Delivery Device Oxygen Liter Flow FiO2 % Sodium 134.0 L Potassium 4.26 Chloride 104.4 Carbon Dioxide 24.9 Anion Gap 8.96 BUN 29.1 H Creatinine 0.69 Estimated GFR (MDRD) 81.00 BUN/Creatinine Ratio 42.17 Glucose 165.3 H Lactic Acid Calcium 8.55 Magnesium Ferritin Total Bilirubin 0.59 AST 34.6 ALT 20.6 Alkaline Phosphatase 93.8 Lactate Dehydrogenase Troponin I C-Reactive Prot, Quant NT-Pro-B Natriuret Pep Total Protein 6.05 L Albumin 3.03 L Globulin 3.02 Albumin/Globulin Ratio 1.00 Amylase Lipase Procalcitonin D-Dimer Urine Color Urine Clarity Urine pH Ur Specific Carroll Urine Protein Urine Glucose (UA) Urine Ketones Urine Blood Urine Nitrite Urine Bilirubin Urine Urobilinogen Ur Leukocyte Esterase Urine Microscopic RBC Urine Microscopic WBC Ur Squamous Epith Cells Ur Renal Epithelial Cell Amorphous Sediment Fine Granular Casts Stl Occult Blood (IFOB) Stool Occult Blood #2 Stool Occult Blood #3 Digoxin 0.82 Influ A Molecular Assay Influ B Molecular Assay RSV Antigen SARS CoV-2 RNA Rapid JULIEN 05/24/21 05/24/21 05/24/21 05:00 05:20 05:20 WBC 5.39 RBC 3.05 L Hgb 9.7 L Hct 29.1 L MCV 95.4 MCH 31.8 H MCHC 33.3 RDW Coeff of Vanessa 14.7 Plt Count 110 L Immature Gran % (Auto) 0.6 Neut % (Auto) 83.1 H Lymph % (Auto) 6.7 L Porter % (Auto) 9.6 Eos % (Auto) 0.0 Baso % (Auto) 0.0 Neut # (Auto) 4.5 Lymph # (Auto) 0.4 L Porter # (Auto) 0.5 Eos # (Auto) 0.0 Baso # (Auto) 0.0 Immature Gran # (Auto) 0.0 PT 10.7 INR 1.03 Puncture Site Base Excess O2 Saturation ABG pH ABG pCO2 ABG pO2 ABG HCO3 ABG Total CO2 Americo Test Hemoglobin Oxyhemoglobin Carboxyhemoglobin Total Hemoglobin O2 Delivery Device Oxygen Liter Flow FiO2 % Sodium 132.7 L Potassium 4.09 Chloride 102.2 Carbon Dioxide 28.0 Anion Gap 6.59 BUN 21.4 H Creatinine 0.66 Estimated GFR (MDRD) 85.00 BUN/Creatinine Ratio 32.42 Glucose 218.5 H D Lactic Acid Calcium 8.56 Magnesium Ferritin Total Bilirubin 0.67 AST 33.7 ALT 22.8 Alkaline Phosphatase 89.7 Lactate Dehydrogenase Troponin I C-Reactive Prot, Quant NT-Pro-B Natriuret Pep Total Protein 5.81 L Albumin 2.94 L Globulin 2.87 Albumin/Globulin Ratio 1.02 Amylase Lipase Procalcitonin D-Dimer Urine Color Urine Clarity Urine pH Ur Specific Carroll Urine Protein Urine Glucose (UA) Urine Ketones Urine Blood Urine Nitrite Urine Bilirubin Urine Urobilinogen Ur Leukocyte Esterase Urine Microscopic RBC Urine Microscopic WBC Ur Squamous Epith Cells Ur Renal Epithelial Cell Amorphous Sediment Fine Granular Casts Stl Occult Blood (IFOB) Stool Occult Blood #2 Stool Occult Blood #3 Digoxin Influ A Molecular Assay Influ B Molecular Assay RSV Antigen SARS CoV-2 RNA Rapid JULIEN 05/25/21 05/25/21 05/25/21 05:02 05:02 05:02 WBC 6.96 RBC 3.26 L Hgb 10.2 L Hct 31.1 L MCV 95.4 MCH 31.3 H MCHC 32.8 RDW Coeff of Vanessa 14.5 Plt Count 127 L Immature Gran % (Auto) 0.6 Neut % (Auto) 81.1 H Lymph % (Auto) 7.3 L Porter % (Auto) 10.9 H Eos % (Auto) 0.0 Baso % (Auto) 0.1 Neut # (Auto) 5.6 Lymph # (Auto) 0.5 L Porter # (Auto) 0.8 Eos # (Auto) 0.0 Baso # (Auto) 0.0 Immature Gran # (Auto) 0.0 PT 11.0 INR 1.06 Puncture Site Base Excess O2 Saturation ABG pH ABG pCO2 ABG pO2 ABG HCO3 ABG Total CO2 Americo Test Hemoglobin Oxyhemoglobin Carboxyhemoglobin Total Hemoglobin O2 Delivery Device Oxygen Liter Flow FiO2 % Sodium 131.5 L Potassium 4.00 Chloride 99.9 Carbon Dioxide 29.3 Anion Gap 6.30 BUN 24.2 H Creatinine 0.63 Estimated GFR (MDRD) 90.00 BUN/Creatinine Ratio 38.41 Glucose 228.2 H Lactic Acid Calcium 8.93 Magnesium Ferritin Total Bilirubin 0.80 AST 50.3 H ALT 33.1 Alkaline Phosphatase 102.7 Lactate Dehydrogenase Troponin I C-Reactive Prot, Quant NT-Pro-B Natriuret Pep Total Protein 5.87 L Albumin 2.97 L Globulin 2.90 Albumin/Globulin Ratio 1.02 Amylase Lipase Procalcitonin D-Dimer Urine Color Urine Clarity Urine pH Ur Specific Carroll Urine Protein Urine Glucose (UA) Urine Ketones Urine Blood Urine Nitrite Urine Bilirubin Urine Urobilinogen Ur Leukocyte Esterase Urine Microscopic RBC Urine Microscopic WBC Ur Squamous Epith Cells Ur Renal Epithelial Cell Amorphous Sediment Fine Granular Casts Stl Occult Blood (IFOB) Stool Occult Blood #2 Stool Occult Blood #3 Digoxin Influ A Molecular Assay Influ B Molecular Assay RSV Antigen SARS CoV-2 RNA Rapid JULIEN 05/26/21 05/26/21 05/26/21 05:23 05:23 05:23 WBC 6.44 RBC 3.44 L Hgb 10.7 L Hct 32.3 L MCV 93.9 MCH 31.1 H MCHC 33.1 RDW Coeff of Vanessa 14.3 Plt Count 153 Immature Gran % (Auto) 1.7 Neut % (Auto) 76.3 H Lymph % (Auto) 9.0 L Porter % (Auto) 12.7 H Eos % (Auto) 0.0 Baso % (Auto) 0.3 Neut # (Auto) 4.9 Lymph # (Auto) 0.6 Porter # (Auto) 0.8 Eos # (Auto) 0.0 Baso # (Auto) 0.0 Immature Gran # (Auto) 0.1 PT 11.4 H INR 1.11 Puncture Site Base Excess O2 Saturation ABG pH ABG pCO2 ABG pO2 ABG HCO3 ABG Total CO2 Americo Test Hemoglobin Oxyhemoglobin Carboxyhemoglobin Total Hemoglobin O2 Delivery Device Oxygen Liter Flow FiO2 % Sodium 130.1 L Potassium 3.89 Chloride 97.6 L Carbon Dioxide 31.0 H Anion Gap 5.39 BUN 26.9 H Creatinine 0.64 Estimated GFR (MDRD) 88.00 BUN/Creatinine Ratio 42.03 Glucose 265.4 H Lactic Acid Calcium 9.15 Magnesium Ferritin Total Bilirubin 0.85 AST 39.8 H ALT 37.1 H Alkaline Phosphatase 108.3 Lactate Dehydrogenase Troponin I C-Reactive Prot, Quant NT-Pro-B Natriuret Pep Total Protein 5.84 L Albumin 2.99 L Globulin 2.85 Albumin/Globulin Ratio 1.04 Amylase Lipase Procalcitonin D-Dimer Urine Color Urine Clarity Urine pH Ur Specific Carroll Urine Protein Urine Glucose (UA) Urine Ketones Urine Blood Urine Nitrite Urine Bilirubin Urine Urobilinogen Ur Leukocyte Esterase Urine Microscopic RBC Urine Microscopic WBC Ur Squamous Epith Cells Ur Renal Epithelial Cell Amorphous Sediment Fine Granular Casts Stl Occult Blood (IFOB) Stool Occult Blood #2 Stool Occult Blood #3 Digoxin Influ A Molecular Assay Influ B Molecular Assay RSV Antigen SARS CoV-2 RNA Rapid JULIEN 05/27/21 05/27/21 04:45 04:45 WBC RBC Hgb Hct MCV MCH MCHC RDW Coeff of Vanessa Plt Count Immature Gran % (Auto) Neut % (Auto) Lymph % (Auto) Porter % (Auto) Eos % (Auto) Baso % (Auto) Neut # (Auto) Lymph # (Auto) Porter # (Auto) Eos # (Auto) Baso # (Auto) Immature Gran # (Auto) PT 11.4 H INR 1.11 Puncture Site Base Excess O2 Saturation ABG pH ABG pCO2 ABG pO2 ABG HCO3 ABG Total CO2 Americo Test Hemoglobin Oxyhemoglobin Carboxyhemoglobin Total Hemoglobin O2 Delivery Device Oxygen Liter Flow FiO2 % Sodium 129.4 L Potassium 3.85 Chloride 94.1 L Carbon Dioxide 34.1 H Anion Gap 5.05 BUN 28.5 H Creatinine 0.68 Estimated GFR (MDRD) 82.00 BUN/Creatinine Ratio 41.91 Glucose 292.8 H Lactic Acid Calcium 9.10 Magnesium Ferritin Total Bilirubin 0.79 AST 30.8 ALT 33.0 Alkaline Phosphatase 104.5 Lactate Dehydrogenase Troponin I C-Reactive Prot, Quant NT-Pro-B Natriuret Pep Total Protein 5.55 L Albumin 2.82 L Globulin 2.73 Albumin/Globulin Ratio 1.03 Amylase Lipase Procalcitonin D-Dimer Urine Color Urine Clarity Urine pH Ur Specific Carroll Urine Protein Urine Glucose (UA) Urine Ketones Urine Blood Urine Nitrite Urine Bilirubin Urine Urobilinogen Ur Leukocyte Esterase Urine Microscopic RBC Urine Microscopic WBC Ur Squamous Epith Cells Ur Renal Epithelial Cell Amorphous Sediment Fine Granular Casts Stl Occult Blood (IFOB) Stool Occult Blood #2 Stool Occult Blood #3 Digoxin Influ A Molecular Assay Influ B Molecular Assay MPRESSION: No evidence of pulmonary embolus. Cardiomegaly without pericardial effusion.. Metastatic pulmonary nodules. Right lobe pneumonia. Minimal left basilar atelectasis.RSV Antigen Impression: 1. Right lower lobe pneumonia. 2. Cholelithiasis. 3. Mild bilateral hydronephrosis is pro bably related to the distended bladder. 4. Cystitis. 5. Colonic diverticulosis. 6. Atherosclerotic vascular disease SARS CoV-2 RNA Rapid JULIEN MPRESSION: CT's abdomen and pelvis: No evidence of pulmonary embolus. Cardiomegaly without pericardial effusion.. Metastatic pulmonary nodules. Right lobe pneumonia. Minimal left basilar atelectasis. pression: 1. Right lower lobe pneumonia. 2. Cholelithiasis. 3. Mild bilateral hydronephrosis is probably related to the distended bladder. 4. Cystitis. 5. Colonic diverticulosis. 6. Atherosclerotic vascular disease Education Provided to Patient and Family: COVID Follow-ups: PCP within a week. Discharge Disposition: Home Hospital Course: 86 y/o female admitted with COVID infection, primarily GI symptoms, mild pneumonia. D/C without need for oxygen. Given standard treatment, refer to chart for details (remdesivir, steroids, oxygen, empiric abx, albuterol prn). Treated for a flare-up of A-fib with RVR. Rate controlled, no sign of RI. Only blood thinner taken is ASA, see PCP (Dr. Ferrara in [place]) about that. Incidental finding of possible pulmonary nodules on CT. The nurse will discuss this CT finding with daughter, who will relay it to PCP, we do not obtain a complete hx of patient frequently with these types of admissions. ROS completed and outside of HPI is noncontributory. Patient wants to continue DNR status. Physical Exam - VSS, afeb. HEENT grossly WNL, neck supple, heart IRR, no m, lungs diminished breaths, no wheezing, abd. soft, ext - intact, neuro grossly intact, skin WNL for age. . Plan: Discharge home and F/U soon with PCP. Continue cardiac diet and activity as tolerated. Rad[facility] to do a nursing evaluation and a PT/OT evaluation. 40 minutes spent in face to face evaluation and discharge procedure.
== END 2021-05-27 14:25 | disposition home or self-care (01) | DRG 177 ==
LOC: ED 16:34 → SCU 20:39
PROVIDERS: ADMIT Internal Medicine Geriatric Medicine; ATTEND Emergency Medicine
DX: R91.8 Other nonspecific abnormal finding of lung field; R53.1 Weakness; J12.82 Pneumonia due to coronavirus disease 2019; I48.91 Unspecified atrial fibrillation; R00.0 Tachycardia, unspecified; U07.1 COVID-19